=== PATIENT | male | born 1945 | race African-American/Black ===

== ENCOUNTER → 2017-10-31 09:33 | Outpatient (CLI) | payer MEDICARE, MEDICAID, SELFPAY ==
--- NOTE | 2017-10-31 09:40 | XR_ITS ---
XR chest 2V HISTORY: Follow-up pneumonia ITS.REASON: S/P PNEUMONIA,COPD, ORDERING PHYSICIAN: Yuan Gan PATIENT AGE: 71 years COMPARISON: 09/17/2017 FINDINGS: The cardiomediastinal silhouette and pulmonary vascularity are within normal limits. There remains dense consolidation in the left infrahilar region within the left lower lobe. This may be slightly worse compared to the previous exam. This does raise a suspicion of a central obstructing lesion/mass lesion. Recommend CT of the chest with contrast for more thorough evaluation to exclude an underlying pulmonary mass. Calcified granuloma is present in the right lower lobe No acute bony abnormalities. IMPRESSION: Persistent consolidation involving the left lower lobe superior segment. This may be slightly worse. Recommend chest CT with contrast to exclude underlying mass
== END ==
PROVIDERS: PCP Internal Medicine; Visit Provider Internal Medicine
DX: Z09 Encounter for follow-up examination after completed treatment for conditions other than malignant neoplasm (principal); J18.9 Pneumonia, unspecified organism; J44.1 Chronic obstructive pulmonary disease with (acute) exacerbation
CPT/HCPCS: 71046

== ENCOUNTER → 2017-11-01 09:57 | Outpatient (CLI) | payer MEDICARE, MEDICAID, SELFPAY ==
[2017-11-01 10:16] LABS: Blood Urea Nitrogen 11 mg/dL (7-18); Creatinine,Serum 1.08 mg/dL (0.70-1.30); Estimated Glomerular Filt Rate 68 ml/min (>60); GFR (African American) 82 ML/MIN (>60)
--- NOTE | 2017-11-01 10:31 | CT_ITS ---
CT chest wo/w con HISTORY: Left hilar mass/infiltrate, follow-up abnormal radiograph ITS.REASON: PERSISTENT L INFILTRATE ORDERING PHYSICIAN: Yuan Gan PATIENT AGE: 71 years TECHNIQUE: Axial images obtained without and with contrast. Sagittal and coronal reformatted images are also generated and reviewed. CONTRAST: 75ml Isovue 370 I.V. COMPARISON: Radiograph of 10/31/2017 FINDINGS: There is abnormal soft tissue density in the left hilum surrounding and causing some narrowing of the descending branch of the left pulmonary artery and its proximal branches. This area measures approximately 3 x 3 cm. Peripheral to this is a rounded area of density measuring approximately 3 cm with some irregularity of the margins. There are some peripheral air bronchograms adjacent to the lateral dimension density. This is suspicious for a hilar mass/neoplasm with postobstructive pneumonia. Bronchoscopy suggested for further evaluation. There is a small precarinal lymph node at 1.5 x 1.4 cm a small aortopulmonic lymph node is present at 1.2 x 0.9 cm. There are centrilobular emphysematous changes. A calcified granuloma is present in the right lower lobe. No effusions are evident. There is a longitudinal area of consolidation in the left lower lobe posteriorly and may be due to atelectasis. Upper abdominal images are unremarkable. No acute bony anomalies. IMPRESSION: 1. Abnormal soft tissue density in the left infrahilar region causing some narrowing of the proximal aspect of the descending range of the left main pulmonary artery. This area measures 3 x 3 cm and is suspicious for neoplasm. 2. 3 cm somewhat irregular opacity in the superior segment of the left lower lobe peripheral to the suspected hilar mass. While this may be related to dense post obstructive pneumonitis, neoplasm is also considered. Suggest bronchoscopy for further evaluation. The hilar mass is NOT amenable to percutaneous CT-guided biopsy 3. Mild mediastinal adenopathy
== END ==
PROVIDERS: PCP Internal Medicine; Visit Provider Internal Medicine
DX: R04.2 Hemoptysis (principal); R91.8 Other nonspecific abnormal finding of lung field
CPT/HCPCS: 36415; 71270; 82565; 84520; Q9967

== ENCOUNTER → 2017-11-16 14:57 | Outpatient (CLI) | payer MEDICARE, MEDICAID, SELFPAY ==
--- NOTE | 2017-11-16 15:04 | CT_ITS ---
CT abdomen pelvis wo con CLINICAL INDICATION: ITS.REASON: BLOOD IN URINE,ABD PAIN ORDERING PHYSICIAN: Yuan Gan PATIENT AGE: 71 years COMPARISON: Chest CT of [birth year]/01/1977. TECHNIQUE: Axial images obtained with sagittal and coronal reformats. PROCEDURE: Oral Contrast: None IV Contrast: None . FINDINGS: There is a suspicious nodular lesion in the left lung base posteriorly which is contiguous with the abnormality described on the previous chest CT in the superior segment of the left lower lobe. The nodule measures 15 mm and may be due to pulmonary mass or postobstructive change. Pulmonology consult recommended as well as follow-up chest CT with contrast. The liver, gallbladder, spleen, adrenal glands, pancreas, and kidneys have an unremarkable unenhanced CT appearance. No renal calculi or hydronephrosis. No ureteral calculi. The right kidney is slightly low As a normal variant. There is a moderate amount retained colonic feces. Surgical clip in the right lower quadrant. No evidence of appendicitis or diverticulitis. Urinary bladder is decompressed. There are multiple unopacified bowel loops present within the abdomen/pelvis which could obscure or mimic pathology. If symptoms persists, consider repeating exam with IV and oral contrast administration. There is a small right inguinal hernia containing fat. IMPRESSION: 1. No renal or ureteral calculi or hydronephrosis. 2. Constipation. 3. Small right inguinal hernia containing fat. 4 suspicious nodular lesion in the left lung base. Please see recent chest CT for further description and recommendation.
== END ==
PROVIDERS: Family Provider Internal Medicine; PCP Internal Medicine; Visit Provider Internal Medicine
DX: R31.9 Hematuria, unspecified (principal); R10.30 Lower abdominal pain, unspecified
CPT/HCPCS: 74176

== ENCOUNTER → 2018-01-25 11:08 | Outpatient (CLI) | payer MEDICARE, MEDICAID, SELFPAY ==
--- NOTE | 2018-01-25 11:16 | MR_ITS ---
MR head/brain wo/w con HISTORY: Lung cancer, evaluate for metastatic disease ITS.REASON: LUNG CANCER ORDERING PHYSICIAN: Red Wood MD PATIENT AGE: 72 years COMPARISON:: None available TECHNIQUE: Standard multiplanar multiecho sequences are performed without and with gadolinium enhancement . FINDINGS: There is an irregular enhancing lesion in the medial aspect of the right frontal lobe which measures approximately 16 x 15 x 12 mm. There is a moderate amount of edema surrounding this lesion. In addition, there is an irregular 13 x 11 x 10 mm irregular enhancing lesion involving the medial and posterior aspect of the right parietal lobe. There is a mild amount of edema around this lesion. In addition, there is a small enhancing focus in the cortex of the left frontal parietal junction laterally measuring approximately 4 mm. No significant edema around this lesion. No restricted diffusion. No midline shift evident. No other suspicious lesions apparent. No evidence of acute infarction. The cerebellopontine angles, cerebellum, and brainstem are unremarkable. There are few scattered T2 white matter hyperintensities negative. No obvious calvarial lesions. IMPRESSION: The findings are consistent with metastatic disease with a 16 mm lesion in the right frontal lobe, 13 mm lesion in the right parietal lobe, and 4 mm enhancing lesion in the left frontoparietal junction. Moderate amount of edema surrounds the right frontal and right parietal lesions but no midline shift is evident.
[2018-01-25 11:59] LABS: Creatinine,Serum 0.94 mg/dL (0.70-1.30); Estimated Glomerular Filt Rate 79 ml/min (>60); GFR (African American) 96 ML/MIN (>60)
[2018-01-25 12:21] LABS: Blood Urea Nitrogen 18 mg/dL (7-18)
== END ==
PROVIDERS: Family Provider Internal Medicine; PCP Internal Medicine; Visit Provider Internal Medicine Critical Care Medicine
DX: C34.90 Malignant neoplasm of unspecified part of unspecified bronchus or lung (principal)
CPT/HCPCS: 36415; 70553; 82565; 84520; A9576

== ENCOUNTER 2018-02-11 10:25 | Inpatient (IN) ==
[2018-02-11 11:28] LABS: Basophils % 0.1 % (0.1-2.0); Eosinophils # 0.3 K/mm3 (0.0-0.4); Eosinophils % 1.3 % (0.1-12.0); Hematocrit 35.3 % (42.0-52.0); Hemoglobin 10.8 g/dL (14.1-18.0); Lymphocytes % 3.8 K/mm3 (10-50); Mean Corpuscular HGB Conc 30.5 g/dL (31.8-35.4); Mean Corpuscular Hemoglobin 25.2 pg (27.0-31.2); Mean Corpuscular Volume 82.5 fl (80-94); Mean Platelet Volume 7.7 fl (7.4-10.4); Monocytes # 0.7 K/mm3 (0.1-1.0); Monocytes % 2.7 % (1.7-9.3); Neutrophils # 23.4 K/mm3 (1.8-7.8); Neutrophils % 92.1 % (37.0-80.0); Platelet Count 448 K/mm3 (142-424); Red Blood Count 4.27 M/mm3 (4.60-6.20); Red Cell Distribution Width 17.7 % (11.5-17.5); White Blood Count 25.4 K/mm3 (4.8-10.8)
[2018-02-11 11:47] LABS: Anion Gap 9.9 mEq/L (5-15); Potassium 3.9 mmoL/L (3.5-5.1)
[2018-02-11 12:04] LABS: Lymphocytes % 6 % (10-50); Monocytes % 6 % (2-9); Neutrophils % 87 % (42-76); RBC Morphology Normal; Total Cells Counted 100
--- NOTE | 2018-02-11 14:02 | Operative Note ---
Date of procedure: 02/11/18 Pre-op Diagnosis:: Incarcerated recurrent right inguinal hernia Post-op Diagnosis:: Same Procedure performed:: 1. Open repair of incarcerated recurrent right inguinal hernia 2. Diagnostic Laparoscopy. Surgeon:: Cruz Jacobson MD MEAL COOK:: Fabiano Moore Anesthesia: GETA Estimated blood loss (mL): 20 Clinical Note:: Patient is a 72-year-old male. I had seen him as a consultation a couple of months ago for right inguinal hernia. This was minimally symptomatic if any symptomatology at that time. However the patient had initiated workup for possible large lung cancer and therefore plan to proceed with hernia repair at that time was put on hold. He has been diagnosed with non-small cell lung cancer with distant metastases. He has had significant clinical deterioration. He had presented to his primary care physician's office this morning complaining of pain at the hernia site. He was found to have findings of incarcerated inguinal hernia with possible strangulation was sent for urgent surgical evaluation. He was seen in the office and had incarcerated and possibly strangulated inguinal hernia. This was exquisitely tender to the patient unable to be reduced. The plan was for emergent open repair with possible laparotomy if necessary. Operative findings:: Patient had an incarcerated recurrent direct hernia. There is some necrosis of the apparent hernia sac. Completion laparoscopy revealed a knuckle of bowel which was indurated and erythematous which had been contained within the hernia sac but this appeared to be viable and nonnecrotic. Operative note:: Consent was obtained. Patient was taken to the operating room. He was given preoperative intravenous antibiotics. General anesthesia was induced. Abdomen and perineal area were prepped and draped in the standard surgical fashion. Patient actually had wondered to be prior scar well below the inguinal ligament from possible prior repair. Oblique incision was made just above landmarks identifying the inguinal ligament. Dissection carried down through subcutaneous tissues and Angie's fascia. External oblique muscle was exposed. External oblique muscle was opened along its fibers. Anatomy was distorted due to apparent prior primary repair without mesh. With some difficulty the herniated contents were delivered to the wound using mostly blunt dissection. It was difficult to determine the nature of the herniated contents. There was some evidence of necrosis of the apparent hernia sac. Cord structures were altered in their normal anatomic location due to the prior repair and ultimately delineation of the anatomy was achieved. The floor of the inguinal canal was opened somewhat. Attempt was made to open the hernia sac without success initially. It appeared rather thickened and there was initially concern that this may be bladder herniated. This was opened and there is a small amount of fluid within the peritoneum which was suctioned free. Extraneous tissue of the hernia sac which was necrotic was excised with electrocautery. Ultimately this was sent for specimen labeled hernia sac. Peritoneum was then closed with a running locking 2-0 chromic suture. This appeared to be a direct recurrent hernia. The defect was then repaired with a medium sized mesh plug which was inserted into the defect and secured with 2-0 Vicryl sutures. [place]lay mesh was then used to reconstruct floor suturing it to Claudy's ligament, transversalis fascia, and inguinal ligament with interrupted 2-0 PDS sutures. The 2 "leaves" of the mesh encircled the cord structures and were sutured to one another with a couple of interrupted 2-0 PDS sutures to reconstruct the internal ring. Cord structures and apparent ilioinguinal nerve were returned to the normal anatomic position. Local anesthetic was infiltrated. External oblique muscle was closed over the cord structures with a running 2-0 Vicryl suture. Angie's fascia was closed with running 3-0 Vicryl. Skin was closed with 4-0 Monocryl in subcuticular fashion. Due to the fact that the herniated contents could never be identified and inspected plan was made for laparoscopy with laparotomy if necessary. Infraumbilical incision was made. While performing abdominal wall lift Veress needle was inserted and CO2 pneumoperitoneum was achieved 15 mmHg. 5 mm trocar was inserted at the umbilicus. In the right lower quadrant the bowel which had been incarcerated within the hernia was identified. It was somewhat inflamed looking. It appeared to be erythematous and indurated with only a portion of the bowel wall affected. It was viable and not necrotic. Hernia repair appeared intact. Plan was made to not perform resection due to the apparent viability of the knuckle of bowel contained within the hernia. Trochars were then removed as CO2 pneumoperitoneum was evacuated. Laparoscopy incisions were closed with single interrupted 4-0 Monocryl subcuticular sutures. Due to the bowel obstruction from the hernia, patient's profound dehydration, plan will be for admission for inpatient care. Condition: stable Disposition: PACU Specimens:: Hernia sac Complications:: None immediate
--- NOTE | 2018-02-11 14:13 | Progress Note ---
[facility] Anesthesia Checklist - Structural Data Admitted From: Home Planned Operative Procedure/s: hernia repair Consent for Planned Operative Procedure(s) Verified: Yes - Airway Assessment C-Spine Mobility Assessed: Yes TMJ Mobility Assessed: Yes Dentition: Partials - Neurological Assessment Level of Consciousness: Awake, Alert, Appropriate - Anesthesia Plan Anesthesia Risk discussed: Yes Anesthesia Plan: Verified ASA Class: III Anesthesia Type: General [facility] Anesthesia HX I have reviewed the patient's past medical history: Yes Medical History: Reports:: Asthma, Cancer (LEFT LUNG CA) Denies:: Diabetes Mellitus Type 1, Diabetes Mellitus Type 2, Internal Pacemaker, MRSA, Seizures Other Medical History: Denies: Blood Transfusion Reaction Other Surgeries: Yes: Colonoscopy, Hernia Repair. No: Pacemaker Amputation: No Fractures: No *Family Hx:: Cancer, Hypertension, Diabetes
--- NOTE | 2018-02-11 14:15 | Progress Note ---
[facility] Anesthesia Record Part II Discharge Time: 14:35 Destination: floor PACU nurse assessment reviewed?: Yes Patient Condition:: Good Anesthesia Complications:: None
--- NOTE | 2018-02-11 14:15 | Progress Note ---
[facility] Anesthesia Record Part I Intake, IV Amount: 2,800 Estimated blood loss (mL): 0 Urine output (mL): 100 Blood Pressure: 115/55 SaO2: 100 Pulse Rate: 100 Respiratory Rate: 14 Temperature: 97 F Patient is:: Drowsy, Stable Stable to PACU at:: 14:05
[2018-02-12 06:36] LABS: Basophils % 0.1 % (0.1-2.0); Eosinophils % 0.1 % (0.1-12.0); Lymphocytes # 1.3 K/mm3 (0.7-4.5); Lymphocytes % 4.4 K/mm3 (10-50); Mean Corpuscular HGB Conc 29.8 g/dL (31.8-35.4); Mean Corpuscular Hemoglobin 25.2 pg (27.0-31.2); Mean Corpuscular Volume 84.6 fl (80-94); Monocytes # 0.7 K/mm3 (0.1-1.0); Monocytes % 2.5 % (1.7-9.3); Neutrophils # 26.7 K/mm3 (1.8-7.8); Neutrophils % 92.9 % (37.0-80.0); Platelet Count 338 K/mm3 (142-424); Red Cell Distribution Width 17.6 % (11.5-17.5)
[2018-02-12 06:41] LABS: Anion Gap 5.1 mEq/L (5-15); Potassium 4.1 mmoL/L (3.5-5.1)
[2018-02-12 06:43] LABS: Hemoglobin 8.7 g/dL (14.1-18.0); White Blood Count 27.8 K/mm3 (4.8-10.8)
[2018-02-12 06:44] LABS: Hematocrit 29.2 % (42.0-52.0)
--- NOTE | 2018-02-12 07:03 | Progress Note ---
Subjective Patient reports: feels better, pain is less Narrative: Patient feels better. He does have some abdominal soreness when coughing but overall much better. No nausea. Exam Vital signs and Labs for Last 24 Hours: Temp Pulse Resp BP Pulse Ox 97.8 F 78 16 99/64 100 02/12/18 04:00 02/12/18 04:00 02/12/18 04:00 02/12/18 04:00 02/12/18 04:00 Laboratory Results - last 24 hr 02/11/18 11:20: WBC 25.4 H*, RBC 4.27 L, Hgb 10.8 L, Hct 35.3 L, MCV 82.5, MCH 25.2 L, MCHC 30.5 L, RDW 17.7 H, Plt Count 448 H, MPV 7.7, Neut % (Auto) 92.1 H , Lymph % (Auto) 3.8 L, Winston % (Auto) 2.7, Eos % (Auto) 1.3, Baso % (Auto) 0.1, Neut # (Auto) 23.4 H, Lymph # (Auto) 1.0, Winston # (Auto) 0.7, Eos # (Auto) 0.3, Baso # (Auto) 0.0, Total Counted 100, Neutrophils % (Manual) 87 H, Band Neutrophils % 1.0, Lymphocytes % (Manual) 6 L, Monocytes % (Manual) 6, Platelet Estimate Normal, RBC Morphology Normal 02/11/18 11:20: Sodium 136, Potassium 3.9, Chloride 99, Carbon Dioxide 31, Anion Gap 9.9, BUN 24 H, Creatinine 0.95, Estimated Creat Clear 48, Estimated GFR 78, Est GFR ( Amer) 95, Glucose 122 H 02/11/18 12:00: Urine Color [place], Urine Appearance Clear, Urine pH 5.5, Ur Specific [place] >= 1.030, Urine Protein Trace, Urine Glucose (UA) Negative, Urine Ketones Negative, Urine Blood Negative, Urine Nitrate Positive, Urine Bilirubin 2+ A, Urine Urobilinogen 4.0, Ur Leukocyte Esterase Negative, Urine RBC None, Urine WBC 3-5, Ur Squamous Epith Cells 5-10, Urine Bacteria Trace, Hyaline Casts 10-20 02/12/18 06:19: WBC 27.8 H*, RBC 3.40 L, Hgb 8.7 L D, Hct 29.2 L, MCV 84.6, MCH 25.2 L, MCHC 29.8 L, RDW 17.6 H, Plt Count 338, MPV 8.0, Neut % (Auto) 92.9 H, Lymph % (Auto) 4.4 L, Winston % (Auto) 2.5, Eos % (Auto) 0.1, Baso % (Auto) 0.1, Neut # (Auto) 26.7 H, Lymph # (Auto) 1.3, Winston # (Auto) 0.7, Eos # (Auto) 0.0, Baso # (Auto) 0.0 02/12/18 06:19: Sodium 138, Potassium 4.1, Chloride 104, Carbon Dioxide 33 H, Anion Gap 5.1, BUN 23 H, Creatinine 0.85, Estimated Creat Clear 48, Estimated GFR 89, Est GFR ( Amer) 108, Glucose 123 H I & O for Last 24 hours: Intake & Output 02/09/18 02/10/18 02/11/18 02/12/18 11:59 11:59 11:59 11:59 Intake Total 4081 / 4081 Output Total 775 / 775 Balance 3306 / 3306 Weight 109 lb 109 lb - *Routine Abdominal Exam Present: soft Comments: Dressings intact Progress Note: A&P Assessment and Plan for All Diagnoses:: MORENA Bills Full liquid
[2018-02-12 07:36] LABS: Lymphocytes % 5 % (10-50); Neutrophils % 95 % (42-76); Total Cells Counted 100
[2018-02-12 07:37] LABS: Hypochromasia 2+
--- NOTE | 2018-02-12 07:39 | Pharmacy Consult Notes ---
[facility] Pharmacy VTE Monitoring - Patient Demographics Admission date: 02/11/18 Report Date: 02/12/18 Time: 07:39 Allergies/Adverse Reactions: Patient Allergies No Known Allergies Allergy (Verified 02/11/18 11:10) Height: 1.73 m Weight: 49.442 kg - VTE Risk Labs: VTE Related Lab Results Hgb 8.7 g/dL (14.1-18.0) L D 02/12/18 06:19 Hct 29.2 % (42.0-52.0) L 02/12/18 06:19 Plt Count 338 K/mm3 (142-424) 02/12/18 06:19 BUN 23 mg/dL (7-18) H 02/12/18 06:19 Creatinine 0.85 mg/dL (0.70-1.30) 02/12/18 06:19 Estimated Creat Clear 48 mL/min (0-300) 02/12/18 06:19 Was VTE Risk Assessment Performed: Yes VTE Risk Level: Very Low Risk - Prophylaxis VTE Prophylaxis Ordered?: Yes Types of VTE Prophylaxis: TEDS Knee High Location of Applied Device: Bilateral Lower Extremeties - VTE Diagnosis Confirmed Treatment or plan recommended: Continue Current Treatment
--- NOTE | 2018-02-13 06:57 | Progress Note ---
Subjective Patient reports: feels better Narrative: Patient has tolerated full liquid diet without nausea. Voiding without difficulty. Exam Vital signs and Labs for Last 24 Hours: Temp Pulse Resp BP Pulse Ox 98.8 F 109 H 20 122/74 99 02/13/18 04:00 02/13/18 04:00 02/13/18 04:00 02/13/18 04:00 02/13/18 04:00 Laboratory Results - last 24 hr 02/12/18 06:19: Total Counted 100, Neutrophils % (Manual) 95 H, Lymphocytes % ( Manual) 5 L, Platelet Estimate Normal, Hypochromasia 2+ I & O for Last 24 hours: Intake & Output 02/10/18 02/11/18 02/12/18 02/13/18 11:59 11:59 11:59 11:59 Intake Total 4441 / 4441 2647 / 2647 Output Total 1075 / 1075 875 / 875 Balance 3366 / 3366 1772 / 1772 Weight 109 lb 109 lb - *Routine Abdominal Exam Present: soft Progress Note: A&P Assessment and Plan for All Diagnoses:: Discharge home today
--- NOTE | 2018-02-13 07:26 | Discharge Summary ---
General - General Admission date:: 02/11/18 Discharge date: 02/13/18 HPI HPI: Patient is a 72-year-old white male with advanced metastatic lung cancer newly diagnosed. I had actually seen him several months ago prior to that diagnosis for a recurrent right inguinal hernia. This was minimally if any symptomatic at that time. He had presented to his primary care physician's office on with approximately a 2 day history of significant pain however in the right groin area. There is concern for possible strangulated inguinal hernia and he was seen immediately in the office. He had findings of incarcerated and possibly strangulated inguinal hernia and arrangements were made for emergent surgical intervention. Hospital Course Hospital Course: Patient was taken to the operating room and underwent open repair of incarcerated right inguinal hernia. He had a necrotic hernia sac. He did have laparoscopy performed after the hernia repair to inspect the underlying bowel. He had a knuckle of small bowel incarcerated within the hernia sac. This showed some focal erythema and mild induration but no evidence of any necrosis. Plan was made to not perform section. Please see operative dictation for complete details. Patient was admitted postoperatively to assess for ileus or recurrent bowel obstruction and for hydration as he showed findings of significant dehydration upon admission and presentation. Bills catheter remained in place. He was on an n.p.o. status overnight. Of note, the patient did have a leukocytosis and this remained elevated the following morning. He was continued on perioperative intravenous antibiotics. The following morning he was doing well with no nausea or abdominal pain other than soreness from surgery. Bills catheter was discontinued. He was given a full liquid diet. He tolerated full liquid diet without difficulty. Patient was able to void without difficulty. On postoperative day #2 arrangements are made for discharge home. Objective Vital signs: Temp Pulse Resp BP Pulse Ox 98.8 F 109 H 20 122/74 99 02/13/18 04:00 02/13/18 04:00 02/13/18 04:00 02/13/18 04:00 02/13/18 04:00 - *Routine Abdominal Exam Present: soft Results Labs on day of discharge: Labs from last 24 hours 02/12/18 06:19 Total Counted 100 Neutrophils % (Manual) 95 H Lymphocytes % (Manual) 5 L Platelet Estimate Normal Hypochromasia 2+ DS: Diagnosis - Discharge Diagnosis (1) Inguinal hernia of right side with obstruction Status: Acute (2) Dehydration Status: Acute Discharge Plan - Patient Discharge Instructions ACTIVITY: No heavy lifting DIET: advance to your usual diet - Follow up Plan Follow up with: Cruz Jacobson MD [Staff Physician] - 2 weeks Yuan Gan [Primary Care Provider] - 1 week Disposition: Home, Self-Fpc Medications: Home Medications Medication Instructions Recorded Confirmed Type alprazolam 2 mg tablet 2 mg PO QIDP PRN 12/03/17 02/12/18 History aspirin 81 mg tablet,delayed 81 mg PO DAILY 12/03/17 02/12/18 History release rosuvastatin 5 mg tablet 5 mg PO DAILY 12/03/17 02/12/18 History umeclidinium 62.5 mcg-vilanterol 1 puff INHALATION DAILY 12/03/17 02/12/18 History 25 mcg/actuation powdr for inhalation Dexamethasone [Decadron 4mg tablet] 8 mg PO Q6H 02/12/18 02/12/18 History Oxycodone HCl [Oxycodone (IR) 15mg 15 mg PO Q6H 02/12/18 02/12/18 History Tab] Prescriptions/Medication Reconciliation: Continue umeclidinium 62.5 mcg-vilanterol 25 mcg/actuation powdr for inhalation 1 puff INHALATION DAILY alprazolam 2 mg tablet 2 mg PO QIDP PRN PRN Reason: Anxiety aspirin 81 mg tablet,delayed release 81 mg PO DAILY rosuvastatin 5 mg tablet 5 mg PO DAILY Oxycodone HCl [Oxycodone (IR) 15mg Tab] 15 mg PO Q6H Dexamethasone [Decadron 4mg tablet] 8 mg PO Q6H - Vaccines Date Pneumonia Vaccine Given: 02/13/18 Date Influenza Vaccine Given: 02/13/18
== END 2018-02-13 10:25 | disposition home or self-care (01) ==
LOC: OR 10:25 → 2ND 10:25 → OBSVTOIN 14:54
PROVIDERS: ADMIT Surgery; ATTEND Surgery

== ENCOUNTER 2018-02-20 14:52 | Inpatient (IN) ==
--- NOTE | 2018-02-20 15:06 | Emergency Department Note ---
ED Disposition Clinical Impression: Pericarditis Qualifiers: Pericarditis type: unspecified type Chronicity: acute Qualified Code(s): I30.9 - Acute pericarditis, unspecified Pneumonia Qualifiers: Pneumonia type: due to unspecified organism Laterality: left Lung location: lower lobe of lung Qualified Code(s): J18.1 - Lobar pneumonia, unspecified organism Lung cancer Qualifiers: Laterality: left Lung location: hilum of lung Qualified Code(s): C34.02 - Malignant neoplasm of left main bronchus Disposition: Still a Patient Condition on Discharge: Serious - Critical Care Critical Care Time: No Attestation: On , the high probability of a clinically significant, sudden or life threatening deterioration of the following system(s) required my full and direct attention, intervention and personal management. The time I documented below is in addition to time spent performing reported procedures but includes the following listed in this critical care notation. Medical Decision Making - Félix Inquiry Pt receiving controlled substance: No Vital Signs: 02/20/18 14:53 02/20/18 15:00 02/20/18 15:03 Temperature 98.3 F Temperature Source Oral Pulse Rate 120 H 119 H Pulse Rate [Left Radial] 125 H 116 H Respiratory Rate 24 24 Blood Pressure [Right Arm] 122/85 149/64 Blood Pressure Mean [Right Arm] 97 92 Blood Pressure Source [Right Arm] Automatic Cuff Automatic Cuff Blood Pressure Position [Right Arm] Sitting Sitting 02 Sat by Pulse Oximetry 98 98 Oxygen Delivery Method Room Air Room Air 02/20/18 15:21 02/20/18 16:02 02/20/18 16:16 Temperature Temperature Source Pulse Rate Pulse Rate [Left Radial] 111 H 114 H 115 H Respiratory Rate 24 24 18 Blood Pressure [Right Arm] 151/83 152/78 150/80 Blood Pressure Mean [Right Arm] 105 102 103 Blood Pressure Source [Right Arm] Blood Pressure Position [Right Arm] Sitting Sitting 02 Sat by Pulse Oximetry 94 L 96 94 L Oxygen Delivery Method Room Air Room Air - Lab Data Lab Results 02/20/18 15:00: WBC 12.4 H, RBC 3.26 L, Hgb 8.3 L, Hct 27.9 L, MCV 85.5, MCH 25.4 L, MCHC 29.7 L, RDW 17.7 H, Plt Count 295, MPV 8.3, Neut % (Auto) 87.0 H, Lymph % (Auto) 8.4 L, [place] % (Auto) 2.5, Eos % (Auto) 1.9, Baso % (Auto) 0.2, Neut # (Auto) 10.8 H, Lymph # (Auto) 1.0, [place] # (Auto) 0.3, Eos # (Auto) 0.2, Baso # (Auto) 0.0 02/20/18 15:00: Sodium 142, Potassium 3.3 L, Chloride 106, Carbon Dioxide 31, Anion Gap 8.3, BUN 11, Creatinine 0.87, Estimated Creat Clear 51, Estimated GFR 87, Est GFR ( Amer) 105, Glucose 108 H D, Troponin I < 0.02 Result diagrams: 02/20/18 15:00 02/20/18 15:00 Orders (Tests/Meds): ED MEDICATIONS Generic Name Dose Route Start Last Admin Trade Name Freq PRN Reason Stop Dose Admin Aspirin 81 mg 02/21/18 09:00 Aspirin 81mg Enteric Coated Tablet PO 03/23/18 08:59 DAILY [facility] Dexamethasone Sodium Phosphate 8 mg 02/20/18 16:25 Decadron 4mg/Ml 1ml Vial IV 03/22/18 16:24 Q6H [facility] Azithromycin 500 mg/ Sodium 250 mls @ 250 mls/hr 02/20/18 16:25 Chloride IV 03/06/18 16:24 Q24H [facility] Protocol Ceftriaxone Sodium 1 gm/ 50 mls @ 100 mls/hr 02/20/18 16:25 Sodium Chloride IV 03/06/18 16:24 Q24H [facility] Protocol Indomethacin 50 mg 02/20/18 17:30 Indocin 25mg Capsule PO 03/22/18 17:29 TIDWM [facility] Non-Formulary Medication 2 mg 02/20/18 16:25 Alprazolam [Xanax 2mg Tab] PO QIDP PRN Anxiety Non-Formulary Medication 15 mg 02/20/18 16:30 Oxycodone Hcl [Oxycodone (Ir) 15mg Tab] PO 03/22/18 16:29 Q6H [facility]AD[facility] Non-Formulary Medication 5 mg 02/21/18 09:00 Rosuvastatin Calcium [Rosuvastatin Calcium] PO 03/23/18 08:59 DAILY [facility] Non-Formulary Medication 1 puff 02/21/18 09:00 Umeclidinium Brm/Vilanterol Tr [Anoro Ellipta 62.5-25 Mcg Inh] INHALATION 08:59 DAILY [facility] Discontinued Medications Generic Name Dose Route Start Last Admin Trade Name Freq PRN Reason Stop Dose Admin Dexamethasone Sodium Phosphate 8 mg 02/20/18 16:09 Decadron 4mg/Ml 1ml Vial IV 02/20/18 16:10 ONCE ONE Diphenhydramine HCl 50 mg 02/20/18 14:58 Benadryl 50mg/1ml Vial IV 02/20/18 14:59 ONCE ONE Fentanyl Citrate 50 mcg 02/20/18 14:58 Fentanyl 100mcg/2ml Vial IV 02/21/18 14:59 Q3MINP PRN Moderate to Severe Pain Fentanyl Citrate 50 mcg 02/20/18 14:58 Fentanyl 250mcg/5ml Vial IV 02/21/18 14:58 Q3MINP PRN Moderate to Severe Pain Fentanyl Citrate 25 mcg 02/20/18 14:58 Fentanyl 100mcg/2ml Vial IV 02/21/18 14:59 Q3MINP PRN Moderate to Severe Pain Fentanyl Citrate 25 mcg 02/20/18 14:58 Fentanyl 250mcg/5ml Vial IV 02/21/18 14:58 Q3MINP PRN Moderate to Severe Pain Flumazenil 0.2 mg 02/20/18 14:58 Romazicon 0.1mg/Ml 5ml Vial IV 02/20/18 23:00 NEEDED PRN Sedation Heparin Sodium (Porcine) 10,000 unit 02/20/18 14:58 Heparin 1,000 Units/Ml 10ml Vial (Medical Sales Representative) IV 02/20/18 18:58 NEEDED PRN Emergency Box Denitrator Heparin Sodium/Sodium Chloride 3,000 unit 02/20/18 14:58 Heparin 1000 Units/500ml Ns (Medical Sales Representative) IV 02/20/18 14:59 ONCE ONE Sodium Chloride 1,000 mls @ 25 mls/hr 02/20/18 15:00 Sod Chlor 0.9% 1000ml Bag IV 02/21/18 14:58 .Q25H [facility]AD[facility] Indomethacin 50 mg 02/20/18 16:08 Indocin 25mg Capsule PO 02/20/18 16:09 ONCE ONE Lidocaine HCl 20 ml 02/20/18 14:58 Lidocaine 1% 20ml Mdv IJ 02/20/18 14:59 ONCE ONE Midazolam HCl 1 mg 02/20/18 14:58 Midazolam 2mg/2ml Vial IV 02/21/18 14:58 Q3MINP PRN Sedation Midazolam HCl 1 mg 02/20/18 14:58 Midazolam 1mg/Ml 5ml Vial IV 02/21/18 14:58 Q3MINP PRN Sedation Naloxone HCl 0.4 mg 02/20/18 14:58 Narcan 0.4mg/Ml Vial IV 02/21/18 14:58 Q5MINP PRN Decreased respirations Nitroglycerin 800 mcg 02/20/18 14:58 Nitroglycerin 800mcg/8ml Syr (Medical Sales Representative) IV 02/21/18 14:58 NEEDED PRN Emergency Box Denitrator Verapamil HCl 2.5 mg 02/20/18 14:58 Verapamil 2.5mg/Ml 2ml Vial IV 02/20/18 14:59 ONCE ONE ORDERS Category Date Time Status Complete Blood Count Auto Diff Stat Lab 02/20/18 15:00 Results 12-lead EKG Request [ECG Request by /Erik] Stat Y 02/20/18 15:29 Stop Req - Radiology Data #1 Image(s): Chest Image Reviewed: Yes I have reviewed radiologist's interpretation No change left lower lobe infiltrate versus postobstructive collapse Medical Decision Narrative: EKG shows anterior, inferior, and lateral ST elevation. Symptoms are most suggestive of pericarditis more so than acute NH. As noted, the patient also has a left-sided pneumonia, which is the side of his pain, and also his lung cancer on that side. Also at risk of PE given his cancer. However, given his EKG findings a code STEMI was called. NAREN Jones, for Dr. Tucker responded immediately to the emergency room and has sent the EKG to Dr. Tucker. There are going to perform a stat echocardiogram to decide whether to take him to the Medical Sales Representative. 3:14 PM: Echocardiogram shows normal heart function, hyperdynamic. Pericardial effusion, small. Dr. Tucker feels this is pericarditis and recommends that the patient be transferred to [facility] due to his comorbidities. Call placed to [facility] MD[facility]. 3:44 PM: Discussed with Dr. Lamb, emergency physician at [facility]. He also got the plant associate client application support specialist on the line. Neither 1 of them feel that the patient needs transfer to a higher level of care. They both felt that he should be admitted here for treatment. I discussed the case with Dr. Falcon and he said he would be willing to admit if Dr. Tucker's service was willing to consult. I spoke with Nima and he said they would consult. 3:50 PM: I have discussed the case with Dr. Falcon who agrees to admit the patient to the hospital. We discussed the patient's clinical information, including history, exam, laboratory and radiology results and ED course. Per hospital procedure, I will write temporary bridge inpatient orders on the patient. Specific orders requested by the admitting physician: Indomethacin 50 mg 3 times daily. Dexamethasone 8 mg IV every 6 hours. Rocephin and Zithromax for pneumonia. Consult cardiology. General Adult HPI - General Chief complaint: Chest Pain Stated complaint: chest pain Time Seen by Provider: 02/20/18 14:55 Mode of Arrival: Ambulatory Limitations: No Limitations Description of Symptoms (Recalled from ER Triage Doc. by RN): pt to ed ambulatory with c/o lt side chest pain seen earlier today with same dx with pneumonia pt given 324mg asa today. - History of Present Illness HPI narrative: Seen here this morning for chest pain and fever. Had a left sided pneumonia, presumably postobstructive from lung cancer. Had a negative chest pain workup including 2 normal troponins. Says that he went home and felt good while sitting up but when he laid down he had increased pain when he breathes, left chest. His heart began racing. [place] short of breath. No known history of heart problems. Has left lung cancer with brain metastases. Treatment not yet started. Sees Dr. Winters. Primary care provider is Dr. Gan. - Related Data Home Medications Medication Instructions Recorded Confirmed alprazolam 2 mg tablet 2 mg PO QIDP PRN 12/03/17 02/20/18 aspirin 81 mg tablet,delayed 81 mg PO DAILY 12/03/17 02/20/18 release rosuvastatin 5 mg tablet 5 mg PO DAILY 12/03/17 02/20/18 umeclidinium 62.5 mcg-vilanterol 1 puff INHALATION DAILY 12/03/17 02/20/18 25 mcg/actuation powdr for inhalation Dexamethasone [Decadron 4mg tablet] 8 mg PO Q6H 02/12/18 02/20/18 Oxycodone HCl [Oxycodone (IR) 15mg 15 mg PO Q6H 02/12/18 02/20/18 Tab] Cefdinir [Omnicef 300mg Capsule] 300 mg PO BID 02/20/18 02/20/18 Clindamycin HCl [Clindamycin 300mg 300 mg PO TID 02/20/18 02/20/18 Cap] Allergies Allergy/AdvReac Type Severity Reaction Status Date / Time No Known Allergies Allergy Verified 02/11/18 11:10 [facility] History I have reviewed the patient's past medical history: Yes Medical History: Reports:: Asthma, Cancer (lung, brain, liver and bone) Denies:: Diabetes Mellitus Type 1, Diabetes Mellitus Type 2, Internal Pacemaker, MRSA, Seizures Other Medical History: Denies: Blood Transfusion Reaction Other Surgeries: Yes: Colonoscopy, Hernia Repair. No: Pacemaker Amputation: No Fractures: No - Social History Smoking Status: Former smoker Tobacco Type: cigarettes Alcohol Intake: never Alcohol Intake Frequency:: a few times a week Substance Use Type: denies use Occupational Status: retired Housing: house - Psychiatric History Expresses thoughts of harming self/others: None Suicide Plan Description: No Plan Family Hx:: Cancer, Hypertension, Diabetes ROS Obtained: Yes All systems reviewed & no additional complaints - Constitutional Constitutional: Reports fever(s) - Cardiovascular Cardiovascular: Reports chest pain, Reports palpitations - Respiratory Respiratory: Yes cough, Yes dyspnea Physical Exam - General General appearance: alert, in distress - Head Head exam: atraumatic, normocephalic, normal inspection - Eye Eye exam: Present: normal appearance, PERRL, EOMI - ENT ENT exam: Present: normal exam, normal oropharynx, mucous membranes moist, TM's normal bilaterally, normal external ear exam - Neck Neck exam: Present: normal inspection, full ROM, trachea midline. Absent: meningismus, lymphadenopathy - Chest Chest inspection: Present: normal inspection, symmetric chest wall rise. Absent : tenderness - Respiratory Respiratory exam: Present: normal lung sounds bilaterally. Absent: respiratory distress - Cardiovascular Cardiovascular exam: Present: normal rhythm, tachycardia. Absent: JVD - Abdominal Exam Abdominal exam: Present: soft, normal bowel sounds. Absent: distention, tenderness, guarding - Extremities Exam Extremities exam: Present: normal inspection, full ROM, normal capillary refill. Absent: calf tenderness - Back Exam Back exam: Present: normal inspection. Absent: tenderness - Neurological Exam Neurological exam: Present: alert, oriented X3 - Psychiatric Psychiatric exam: Present: normal affect, normal mood - Skin Skin exam: Present: warm, dry, intact, normal color
[2018-02-20 15:39] LABS: Basophils % 0.2 % (0.1-2.0); Eosinophils # 0.2 K/mm3 (0.0-0.4); Eosinophils % 1.9 % (0.1-12.0); Hematocrit 27.9 % (42.0-52.0); Hemoglobin 8.3 g/dL (14.1-18.0); Lymphocytes % 8.4 K/mm3 (10-50); Mean Corpuscular HGB Conc 29.7 g/dL (31.8-35.4); Mean Corpuscular Hemoglobin 25.4 pg (27.0-31.2); Mean Corpuscular Volume 85.5 fl (80-94); Mean Platelet Volume 8.3 fl (7.4-10.4); Monocytes # 0.3 K/mm3 (0.1-1.0); Monocytes % 2.5 % (1.7-9.3); Neutrophils # 10.8 K/mm3 (1.8-7.8); Platelet Count 295 K/mm3 (142-424); Red Blood Count 3.26 M/mm3 (4.60-6.20); Red Cell Distribution Width 17.7 % (11.5-17.5); White Blood Count 12.4 K/mm3 (4.8-10.8)
[2018-02-20 15:51] LABS: Anion Gap 8.3 mEq/L (5-15); Blood Urea Nitrogen 11 mg/dL (7-18); Carbon Dioxide 31 mmol/L (21.0-32.0); Chloride 106 mmol/L (98-107); Glucose 108 mg/dL (74-106); Potassium 3.3 mmoL/L (3.5-5.1); Sodium 142 mmol/L (136-145)
[2018-02-20 16:30] LABS: Lymphocytes % 5 % (10-50); Monocytes % 4 % (2-9); Neutrophils % 90 % (42-76); Total Cells Counted 100
[2018-02-20 16:31] LABS: RBC Morphology Normal
--- NOTE | 2018-02-20 16:54 | Consult Report ---
History of Present Illness Consult date: 02/20/18 Requesting physician: Ananda Bains Consult reason: chest pain Chief complaint: chest pain Additional Medical History:: 1. Lung cancer with brain metastasis A. Patient has been on dexamethasone therapy for about 2 weeks with plans to start chemotherapy in the near future 2. History of tobacco use discontinued recently 3. Hyperlipidemia 4. Recent weight loss 5. Anemia with Hgb 8.3 on 02/20/18 6. Pneumonia, 02/2018 History of present illness: Seen here this morning for chest pain and fever. Had a left sided pneumonia, presumably postobstructive from lung cancer. Had a negative chest pain workup including 2 normal troponins. Says that he went home and felt good while sitting up but when he laid down he had increased pain when he breathes, left chest. His heart began racing. [place] short of breath. No known history of heart problems. Has left lung cancer with brain metastases. Treatment not yet started. Sees Dr. Winters. Primary care provider is Dr. Gan. The above per Dr. Daniels Patient with pleuritic sounding chest pain that worsens with movement. Friction rub heard on exam. EKG shows diffuse ST elevation. Preliminary stat echocardiogram performed shows evidence of small pericardial effusion with ejection fraction around 45-50% range. Due to the patient's comorbidities it was felt that the patient would be best served at a tertiary facility that had capabilities to perform stat pericardiocentesis if needed. ER was contacted with consultation with cardiology services and transfer was not felt necessary. Therefore the patient has been admitted here for medical therapy. [facility] History Medical History: Reports:: Asthma, Cancer (lung, brain, liver and bone) Denies:: Diabetes Mellitus Type 1, Diabetes Mellitus Type 2, Internal Pacemaker, MRSA, Seizures Other Medical History: Denies: Blood Transfusion Reaction Other Surgeries: Yes: Colonoscopy, Hernia Repair. No: Pacemaker Amputation: No Fractures: No - *Social History Smoking Status: Former smoker Tobacco Type: cigarettes Alcohol Intake: never Alcohol Intake Frequency:: a few times a week Substance Use Type: denies use Occupational Status: retired Housing: house - Psychiatric History Expresses thoughts of harming self/others: None Suicide Plan Description: No Plan *Family Hx:: Cancer, Hypertension, Diabetes Meds Home Medications Medication Instructions Recorded Confirmed Type alprazolam 2 mg tablet 2 mg PO QIDP PRN 12/03/17 02/20/18 History aspirin 81 mg tablet,delayed 81 mg PO DAILY 12/03/17 02/20/18 History release rosuvastatin 5 mg tablet 5 mg PO DAILY 12/03/17 02/20/18 History umeclidinium 62.5 mcg-vilanterol 1 puff INHALATION DAILY 12/03/17 02/20/18 History 25 mcg/actuation powdr for inhalation Dexamethasone [Decadron 4mg tablet] 8 mg PO Q6H 02/12/18 02/20/18 History Oxycodone HCl [Oxycodone (IR) 15mg 15 mg PO Q6H 02/12/18 02/20/18 History Tab] Cefdinir [Omnicef 300mg Capsule] 300 mg PO BID 02/20/18 02/20/18 History Clindamycin HCl [Clindamycin 300mg 300 mg PO TID 02/20/18 02/20/18 History Cap] Allergies Allergy/AdvReac Type Severity Reaction Status Date / Time No Known Allergies Allergy Verified 02/11/18 11:10 Review of Systems - *Cardiovascular Reports chest pain, Reports shortness of breath - *Respiratory Reports shortness of breath with activity - *Gastrointestinal Denies abdominal pain - *Musculoskeletal Reports joint pain Exam Vital signs and Labs for Last 24 Hours: Temp Pulse Resp BP Pulse Ox 98.3 F 111 H 24 148/72 94 L 02/20/18 16:35 02/20/18 16:35 02/20/18 16:35 02/20/18 16:35 02/20/18 16:16 Laboratory Results - last 24 hr 02/20/18 15:00: WBC 12.4 H, RBC 3.26 L, Hgb 8.3 L, Hct 27.9 L, MCV 85.5, MCH 25.4 L, MCHC 29.7 L, RDW 17.7 H, Plt Count 295, MPV 8.3, Neut % (Auto) 87.0 H, Lymph % (Auto) 8.4 L, [place] % (Auto) 2.5, Eos % (Auto) 1.9, Baso % (Auto) 0.2, Neut # (Auto) 10.8 H, Lymph # (Auto) 1.0, [place] # (Auto) 0.3, Eos # (Auto) 0.2, Baso # (Auto) 0.0, Total Counted 100, Neutrophils % (Manual) 90 H, Band Neutrophils % 1.0, Lymphocytes % (Manual) 5 L, Monocytes % (Manual) 4, Platelet Estimate Normal, RBC Morphology Normal 02/20/18 15:00: Sodium 142, Potassium 3.3 L, Chloride 106, Carbon Dioxide 31, Anion Gap 8.3, BUN 11, Creatinine 0.87, Estimated Creat Clear 51, Estimated GFR 87, Est GFR ( Amer) 105, Glucose 108 H D, Troponin I < 0.02 I & O for Last 24 hours: Intake & Output 02/18/18 02/19/18 02/20/18 02/21/18 11:59 11:59 11:59 11:59 Weight 116 lb - *Routine Neck Exam Absent: JVD, carotid bruit - *Routine Respiratory Exam Present: rhonchi, diminished air movement - *Routine Cardiovascular Exam Present: RRR, rubs - *Routine Extremities Exam Present: edema - *Routine Neurological Exam Present: alert, oriented X3, moving all extremities Assessment and Plan (1) Pericarditis Current visit: Yes Status: Acute Qualifiers: Pericarditis type: unspecified type Chronicity: acute Qualified Code(s): I30.9 - Acute pericarditis, unspecified Category: Medical Code(s): I31.9 - Disease of pericardium, unspecified (2) Chest pain Current visit: No Status: Acute Qualifiers: Chest pain type: precordial pain Qualified Code(s): R07.2 - Precordial pain Category: Medical Code(s): R07.9 - Chest pain, unspecified (3) Pneumonia Current visit: Yes Status: Acute Qualifiers: Pneumonia type: due to unspecified organism Laterality: left Lung location: lower lobe of lung Qualified Code(s): J18.1 - Lobar pneumonia, unspecified organism Category: Medical Code(s): J18.9 - Pneumonia, unspecified organism (4) Anemia Current visit: No Status: Acute Qualifiers: Anemia type: unspecified type Qualified Code(s): D64.9 - Anemia, unspecified Category: Medical Code(s): D64.9 - Anemia, unspecified (5) Lung cancer Current visit: Yes Status: Acute Qualifiers: Laterality: left Lung location: hilum of lung Qualified Code(s): C34.02 - Malignant neoplasm of left main bronchus Category: Medical Code(s): C34.90 - Malignant neoplasm of unspecified part of unspecified bronchus or lung - Assessment and plan all Dx Assessment and Plan for all problems:: 1. Recommend continued dexamethasone therapy. 2. Indomethacin therapy has been started. 3. Consider repeating limited echocardiogram in a.m. 4. Nothing further to add at this time. 5. Replace potassium and check magnesium level.
--- NOTE | 2018-02-20 18:03 | History & Physical Report ---
*Admission Date: 02/20/18 *Chief complaint: Chest pain/fever *History of present illness: 72-year-old male, regular patient of Dr. Yuan Gan, with known lung cancer, who 4 weeks ago was found to have brain metastases and undefined bony metastases. He has been placed on dexamethasone. This morning he came to the emergency department with a feeling of chest pain, enzymes were negative, x-ray showed post obstructive pneumonia and he had a fever, but was otherwise clinically stable and was discharged on p.o. clindamycin after IV Rocephin. Unfortunately. After discharge from the ER patient felt worse and had chest pain that was resolved with sitting up straight. Came back to the ER, found to have new onset murmur, rubs and gallops and pericarditis was diagnosed by EKG criteria as well as an echocardiogram that showed pericardial effusion-minimal. Patient admitted for IV antibiotics. IV steroids and p.o. indomethacin have been started on my recommendation. The patient himself feels better, is eating supper. He is tired and chronically ill-appearing and falls asleep frequently. [facility] History I have reviewed the patient's past medical history: Yes Medical History: Reports:: Asthma, Cancer (lung, brain, liver and bone) Denies:: Diabetes Mellitus Type 1, Diabetes Mellitus Type 2, Internal Pacemaker, MRSA, Seizures Other Medical History: Denies: Blood Transfusion Reaction Other Surgeries: Yes: Colonoscopy, Hernia Repair. No: Pacemaker Amputation: No Fractures: No - *Social History Educational Level: Completed College Smoking Status: Former smoker Tobacco Type: cigarettes Smoking End Date: september 17 Alcohol Intake: never Alcohol Intake Frequency:: a few times a week Substance Use Type: denies use Occupational Status: retired Housing: house Household Members: spouse - Psychiatric History Expresses thoughts of harming self/others: None Suicide Plan Description: No Plan *Family Hx:: Cancer, Hypertension, Diabetes Review of Systems - Constitutional Reports anorexia, Reports chills, Reports fever(s) - Eyes Denies blind spots, Denies blurry vision, Denies change in vision - ENT Denies abnormal hearing, Denies bleeding gums - *Cardiovascular Reports chest pain, Reports chest pain at rest, Reports shortness of breath, Reports shortness of breath with activity, Denies chest pain with activity, Denies irregular heart rhythm, Denies leg swelling - *Respiratory Reports chest congestion, Reports cough, Denies change in phlegm color - *Gastrointestinal Denies abdominal pain, Denies belching - *Genitourinary Denies difficulty urinating - *Musculoskeletal Reports joint pain, Denies abnormal walking - *Neurologic Denies abnormal walking, Denies abnormal hearing - Psychiatric Reports abnormal sleep pattern - Endocrine Denies cold intolerance, Denies excessive sweating Meds Home Medications Medication Instructions Recorded Confirmed Type alprazolam 2 mg tablet 2 mg PO QIDP PRN 12/03/17 02/20/18 History aspirin 81 mg tablet,delayed 81 mg PO DAILY 12/03/17 02/20/18 History release rosuvastatin 5 mg tablet 5 mg PO DAILY 12/03/17 02/20/18 History umeclidinium 62.5 mcg-vilanterol 1 puff INHALATION DAILY 12/03/17 02/20/18 History 25 mcg/actuation powdr for inhalation Dexamethasone [Decadron 4mg tablet] 8 mg PO Q6H 02/12/18 02/20/18 History Oxycodone HCl [Oxycodone (IR) 15mg 15 mg PO Q6H 02/12/18 02/20/18 History Tab] Cefdinir [Omnicef 300mg Capsule] 300 mg PO BID 02/20/18 02/20/18 History Clindamycin HCl [Clindamycin 300mg 300 mg PO TID 02/20/18 02/20/18 History Cap] Allergies Allergy/AdvReac Type Severity Reaction Status Date / Time No Known Allergies Allergy Verified 02/11/18 11:10 Exam Vital signs and Labs for Last 24 Hours: Temp Pulse Resp BP Pulse Ox 98.7 F 114 H 18 180/92 96 02/20/18 16:47 02/20/18 16:47 02/20/18 16:47 02/20/18 16:47 02/20/18 16:47 Laboratory Results - last 24 hr 02/20/18 15:00: WBC 12.4 H, RBC 3.26 L, Hgb 8.3 L, Hct 27.9 L, MCV 85.5, MCH 25.4 L, MCHC 29.7 L, RDW 17.7 H, Plt Count 295, MPV 8.3, Neut % (Auto) 87.0 H, Lymph % (Auto) 8.4 L, [place] % (Auto) 2.5, Eos % (Auto) 1.9, Baso % (Auto) 0.2, Neut # (Auto) 10.8 H, Lymph # (Auto) 1.0, [place] # (Auto) 0.3, Eos # (Auto) 0.2, Baso # (Auto) 0.0, Total Counted 100, Neutrophils % (Manual) 90 H, Band Neutrophils % 1.0, Lymphocytes % (Manual) 5 L, Monocytes % (Manual) 4, Platelet Estimate Normal, RBC Morphology Normal 02/20/18 15:00: Sodium 142, Potassium 3.3 L, Chloride 106, Carbon Dioxide 31, Anion Gap 8.3, BUN 11, Creatinine 0.87, Estimated Creat Clear 51, Estimated GFR 87, Est GFR ( Amer) 105, Glucose 108 H D, Troponin I < 0.02 02/20/18 16:44: Troponin I < 0.02 02/20/18 16:44: Magnesium 1.3 L I & O for Last 24 hours: Intake & Output 02/18/18 02/19/18 02/20/18 02/21/18 11:59 11:59 11:59 11:59 Weight 114 lb 1 oz Narrative: Patient is cachectic, appears chronically ill. Otherwise is a pleasant and talkative black male who is eating his supper, after eating falls asleep frequently during history taking and has to be awakened, but does appear oriented when awakened. Cranial nerves are symmetric. Oropharynx dry but clear. Heart rate regular with systolic and diastolic friction rubs and murmurs noted. Good distal perfusion. Good distal pulses. Skin is dry. Abdomen soft, lungs have rhonchi and crackles in all lung ni. No expiratory wheezing. No stridor. H&P: Result - Labs Labs: Short CBC 02/20/18 Range/Units 15:00 WBC 12.4 H (4.8-10.8) K/mm3 Hgb 8.3 L (14.1-18.0) g/dL Hct 27.9 L (42.0-52.0) % Plt Count 295 (142-424) K/mm3 BMP 02/20/18 15:00 Sodium 142 Potassium 3.3 L Chloride 106 Carbon Dioxide 31 BUN 11 Creatinine 0.87 Glucose 108 H D Cardiac Enzymes 05/16/18 05/16/18 Range/Units 15:00 16:44 Troponin I < 0.02 < 0.02 (0.00-0.06) ng/ml Assessment and Plan (1) Pericarditis Current visit: Yes Status: Acute Qualifiers: Pericarditis type: unspecified type Chronicity: acute Qualified Code(s): I30.9 - Acute pericarditis, unspecified Category: Medical Code(s): I31.9 - Disease of pericardium, unspecified (2) Chest pain Current visit: No Status: Acute Qualifiers: Chest pain type: precordial pain Qualified Code(s): R07.2 - Precordial pain Category: Medical Code(s): R07.9 - Chest pain, unspecified (3) Pneumonia Current visit: Yes Status: Acute Qualifiers: Pneumonia type: due to unspecified organism Laterality: left Lung location: lower lobe of lung Qualified Code(s): J18.1 - Lobar pneumonia, unspecified organism Category: Medical Code(s): J18.9 - Pneumonia, unspecified organism (4) Anemia Current visit: No Status: Acute Qualifiers: Anemia type: unspecified type Qualified Code(s): D64.9 - Anemia, unspecified Category: Medical Code(s): D64.9 - Anemia, unspecified (5) Lung cancer Current visit: Yes Status: Acute Qualifiers: Laterality: left Lung location: hilum of lung Qualified Code(s): C34.02 - Malignant neoplasm of left main bronchus Category: Medical Code(s): C34.90 - Malignant neoplasm of unspecified part of unspecified bronchus or lung - Assessment and plan all Dx Assessment and Plan for all problems:: Admit to hospital. I reviewed preliminary echo report. Fairly preserved ejection fraction. Mild pericarditis. Cautious dose of beta-ayaz tonight. I discussed his brain metastases with he and his son by phone, son is aware of these metastatic lesions. I discussed ongoing care and brought up the prospect of hospice/palliative care. Son is receptive to this. Patient himself is noncommittal at this point. The overall prognosis for this unfortunate gentleman is poor, we will reassess tomorrow morning.
[2018-02-21 07:01] LABS: Anion Gap 8.2 mEq/L (5-15); Potassium 4.2 mmoL/L (3.5-5.1)
--- NOTE | 2018-02-21 07:28 | Pharmacy Consult Notes ---
[facility] Pharmacy VTE Monitoring - Patient Demographics Admission date: 02/20/18 Report Date: 02/21/18 Time: 07:27 Allergies/Adverse Reactions: Patient Allergies No Known Allergies Allergy (Verified 02/11/18 11:10) Height: 1.73 m Weight: 51.738 kg Patient Problems: Current Active Problems Pneumonia (Acute) Lung cancer (Acute) Pericarditis (Acute) - VTE Risk Labs: VTE Related Lab Results Hgb 8.3 g/dL (14.1-18.0) L 02/20/18 15:00 Hct 27.9 % (42.0-52.0) L 02/20/18 15:00 Plt Count 295 K/mm3 (142-424) 02/20/18 15:00 BUN 14 mg/dL (7-18) D 02/21/18 06:46 Creatinine 0.80 mg/dL (0.70-1.30) 02/21/18 06:46 Estimated Creat Clear 50 mL/min (0-300) 02/21/18 06:46 Was VTE Risk Assessment Performed: Yes VTE Score: 3 VTE Risk Level: Low Risk - Prophylaxis VTE Prophylaxis Ordered?: Yes Types of VTE Prophylaxis: TEDS Knee High Location of Applied Device: Bilateral Lower Extremeties - VTE Diagnosis Confirmed Treatment or plan recommended: Continue Current Treatment
--- NOTE | 2018-02-21 08:53 | Progress Note ---
Subjective Date: 02/21/18 Time: 08:47 Principal diagnosis: Pericarditis Interval history: 72 yo BM in bed in NAD. Looks like he feels better today. States chest pain has significantly improved. Breathing better. Exam Vital signs and Labs for Last 24 Hours: Temp Pulse Resp BP Pulse Ox 97.6 F 94 H 18 102/76 94 L 02/21/18 07:37 02/21/18 07:37 02/21/18 07:37 02/21/18 07:37 02/21/18 07:37 Laboratory Results - last 24 hr 02/20/18 15:00: WBC 12.4 H, RBC 3.26 L, Hgb 8.3 L, Hct 27.9 L, MCV 85.5, MCH 25.4 L, MCHC 29.7 L, RDW 17.7 H, Plt Count 295, MPV 8.3, Neut % (Auto) 87.0 H, Lymph % (Auto) 8.4 L, [place] % (Auto) 2.5, Eos % (Auto) 1.9, Baso % (Auto) 0.2, Neut # (Auto) 10.8 H, Lymph # (Auto) 1.0, [place] # (Auto) 0.3, Eos # (Auto) 0.2, Baso # (Auto) 0.0, Total Counted 100, Neutrophils % (Manual) 90 H, Band Neutrophils % 1.0, Lymphocytes % (Manual) 5 L, Monocytes % (Manual) 4, Platelet Estimate Normal, RBC Morphology Normal 02/20/18 15:00: Sodium 142, Potassium 3.3 L, Chloride 106, Carbon Dioxide 31, Anion Gap 8.3, BUN 11, Creatinine 0.87, Estimated Creat Clear 51, Estimated GFR 87, Est GFR ( Amer) 105, Glucose 108 H D, Troponin I < 0.02 02/20/18 16:44: Troponin I < 0.02 02/20/18 16:44: Magnesium 1.3 L 02/20/18 19:55: Troponin I < 0.02 02/20/18 22:10: Troponin I < 0.02 02/21/18 06:46: Sodium 138, Potassium 4.2 D, Chloride 105, Carbon Dioxide 29, Anion Gap 8.2, BUN 14 D, Creatinine 0.80, Estimated Creat Clear 50, Estimated GFR 96, Est GFR ( Amer) 116, Glucose 152 H D I & O for Last 24 hours: Intake & Output 02/18/18 02/19/18 02/20/18 02/21/18 11:59 11:59 11:59 11:59 Intake Total 1500 / 1500 Balance 1500 / 1500 Weight 114 lb 1 oz - *Routine Respiratory Exam Present: decreased breath sounds - *Routine Cardiovascular Exam Present: RRR. Absent: rubs Progress Note: A&P (1) Pericarditis Status: Acute Current Visit: Yes (2) Chest pain Status: Acute Current Visit: No (3) Pneumonia Status: Acute Current Visit: Yes (4) Anemia Status: Acute Current Visit: No (5) Lung cancer Status: Acute Current Visit: Yes Assessment and Plan for All Diagnoses:: Pericarditis improved on IV steroids and PO indomethacin and metoprolol. Potassium back to normal. Will give Magnesium today. Will not check echo today since clinically improved. Recommend follow up in 1-2 wks or sooner if needed.
--- NOTE | 2018-02-21 09:13 | Progress Note ---
Internal Medicine - PN: Subj *Date: 02/21/18 *Time: 08:00 Interval history: Patient states he woke up feeling "great." He was able to ambulate to the bathroom without dizziness or shortness of breath. He ate 50% of his breakfast this morning which he tolerated well. Alert and oriented x3, some confusion. Rate and rhythm regular. No rub or murmur this morning. Lung sounds diminished throughout. Abdomen soft and nontender Exam Vital signs and Labs for Last 24 Hours: Temp Pulse Resp BP Pulse Ox 97.6 F 94 H 18 102/76 94 L 02/21/18 07:37 02/21/18 07:37 02/21/18 07:37 02/21/18 07:37 02/21/18 07:37 Laboratory Results - last 24 hr 02/20/18 15:00: WBC 12.4 H, RBC 3.26 L, Hgb 8.3 L, Hct 27.9 L, MCV 85.5, MCH 25.4 L, MCHC 29.7 L, RDW 17.7 H, Plt Count 295, MPV 8.3, Neut % (Auto) 87.0 H, Lymph % (Auto) 8.4 L, [place] % (Auto) 2.5, Eos % (Auto) 1.9, Baso % (Auto) 0.2, Neut # (Auto) 10.8 H, Lymph # (Auto) 1.0, [place] # (Auto) 0.3, Eos # (Auto) 0.2, Baso # (Auto) 0.0, Total Counted 100, Neutrophils % (Manual) 90 H, Band Neutrophils % 1.0, Lymphocytes % (Manual) 5 L, Monocytes % (Manual) 4, Platelet Estimate Normal, RBC Morphology Normal 02/20/18 15:00: Sodium 142, Potassium 3.3 L, Chloride 106, Carbon Dioxide 31, Anion Gap 8.3, BUN 11, Creatinine 0.87, Estimated Creat Clear 51, Estimated GFR 87, Est GFR ( Amer) 105, Glucose 108 H D, Troponin I < 0.02 02/20/18 16:44: Troponin I < 0.02 02/20/18 16:44: Magnesium 1.3 L 02/20/18 19:55: Troponin I < 0.02 02/20/18 22:10: Troponin I < 0.02 02/21/18 06:46: Sodium 138, Potassium 4.2 D, Chloride 105, Carbon Dioxide 29, Anion Gap 8.2, BUN 14 D, Creatinine 0.80, Estimated Creat Clear 50, Estimated GFR 96, Est GFR ( Amer) 116, Glucose 152 H D I & O for Last 24 hours: Intake & Output 02/18/18 02/19/18 02/20/18 02/21/18 11:59 11:59 11:59 11:59 Intake Total 1500 / 1500 Balance 1500 / 1500 Weight 114 lb 1 oz Assessment and Plan (1) Pericarditis Current visit: Yes Status: Acute Qualifiers: Pericarditis type: unspecified type Chronicity: acute Qualified Code(s): I30.9 - Acute pericarditis, unspecified Category: Medical Code(s): I31.9 - Disease of pericardium, unspecified (2) Chest pain Current visit: No Status: Acute Qualifiers: Chest pain type: precordial pain Qualified Code(s): R07.2 - Precordial pain Category: Medical Code(s): R07.9 - Chest pain, unspecified (3) Pneumonia Current visit: Yes Status: Acute Qualifiers: Pneumonia type: due to unspecified organism Laterality: left Lung location: lower lobe of lung Qualified Code(s): J18.1 - Lobar pneumonia, unspecified organism Category: Medical Code(s): J18.9 - Pneumonia, unspecified organism (4) Anemia Current visit: No Status: Acute Qualifiers: Anemia type: unspecified type Qualified Code(s): D64.9 - Anemia, unspecified Category: Medical Code(s): D64.9 - Anemia, unspecified (5) Lung cancer Current visit: Yes Status: Acute Qualifiers: Laterality: left Lung location: hilum of lung Qualified Code(s): C34.02 - Malignant neoplasm of left main bronchus Category: Medical Code(s): C34.90 - Malignant neoplasm of unspecified part of unspecified bronchus or lung - Assessment and plan all Dx Assessment and Plan for all problems:: Continue IV steroids and antibiotics. He has had significant improvement of symptoms overnight; however his overall prognosis remains poor. Will likely d/ c home tomorrow. Will revisit Hospice discussion at that time.
--- NOTE | 2018-02-22 07:49 | Progress Note ---
Internal Medicine - PN: Subj *Date: 02/22/18 *Time: 07:48 Interval history: Patient continues to feel better, had a good breakfast, was up out of bed yesterday but was very weak. Exam Vital signs and Labs for Last 24 Hours: Temp Pulse Resp BP Pulse Ox 97.8 F 97 H 20 114/75 95 02/22/18 07:25 02/22/18 07:25 02/22/18 07:25 02/22/18 07:25 02/22/18 07:25 I & O for Last 24 hours: Intake & Output 02/19/18 02/20/18 02/21/18 02/22/18 11:59 11:59 11:59 11:59 Intake Total 1500 / 1500 990 / 990 Output Total 525 / 525 Balance 1500 / 1500 465 / 465 Weight 114 lb 1 oz Microbiology Reports for the Last 24 Hours: Microbiology 02/22/18 04:19 Sputum - Expectorated Sputum Gram Stain - Final Narrative: Patient is pleasant, talkative, alert and oriented. Lungs have rhonchi in both bases but slightly better air entry. Heart rate regular. Again as yesterday, no friction rubs or gallops noted that were noted on admission. No edema noted. Assessment and Plan (1) Pericarditis Current visit: Yes Status: Acute Qualifiers: Pericarditis type: unspecified type Chronicity: acute Qualified Code(s): I30.9 - Acute pericarditis, unspecified Category: Medical Code(s): I31.9 - Disease of pericardium, unspecified (2) Chest pain Current visit: No Status: Acute Qualifiers: Chest pain type: precordial pain Qualified Code(s): R07.2 - Precordial pain Category: Medical Code(s): R07.9 - Chest pain, unspecified (3) Pneumonia Current visit: Yes Status: Acute Qualifiers: Pneumonia type: due to unspecified organism Laterality: left Lung location: lower lobe of lung Qualified Code(s): J18.1 - Lobar pneumonia, unspecified organism Category: Medical Code(s): J18.9 - Pneumonia, unspecified organism (4) Anemia Current visit: No Status: Acute Qualifiers: Anemia type: unspecified type Qualified Code(s): D64.9 - Anemia, unspecified Category: Medical Code(s): D64.9 - Anemia, unspecified (5) Lung cancer Current visit: Yes Status: Acute Qualifiers: Laterality: left Lung location: hilum of lung Qualified Code(s): C34.02 - Malignant neoplasm of left main bronchus Category: Medical Code(s): C34.90 - Malignant neoplasm of unspecified part of unspecified bronchus or lung - Assessment and plan all Dx Assessment and Plan for all problems:: Improved pericarditis. Patient seems to be responding well to pneumonia therapy. Check labs tomorrow. Up and around a chair today and PT evaluation for home safety. Possible discharge tomorrow.
--- NOTE | 2018-02-22 17:05 | Cardiology Report ---
PROCEDURE: 2-D M-mode and color Doppler study INDICATIONS FOR THE TEST: Chest pain+ COPD Heart Murmur Tobacco Smoking Palpitations Fatigue Syncope Edema Hypertension Diabetes Mellitus Rheumatic Fever SOB+BROWN+Obesity Hyperlipidemia Family History HD Additional History Lung cancer, r/o pericardial effusion PATIENT INFORMATION HEIGHT: 68 WEIGHT: 116 GENDER: Male B/P: 121/72 2-D/M-MODE INTERPRETATION: 2-D MEASUREMENTS OBSERVED VALUES IN CMS Right Ventricular Dimension (RVDd) 1.5 Interventricular Septum (Thickness)(IVsd) 1.3 Left Ventricular Internal Dimensions(LVIDd) 3.2 Left Ventricular Posterior Wall (Thickness)(LVPWd) 1.3 Aortic Root 3.1 Aortic Cusp Separation 2.1 Left Atrial Dimensions (LAD) 2.2 2D 1. Left atrium is normal size, left ventricle is normal size, left ventricle wall thickness is upper limit of the normal, there is preserved left ventricular systolic function, visually estimated ejection fraction of 55% with no obvious regional wall motion abnormality. 2. The right atrium and right ventricle are normal size and contractility. 3. The aortic valve is minimally thickened and fibrosed. 4. The mitral and tricuspid valve leaflets are minimally thickened. 5. The pulmonic valve is poorly visualized. 6. Trivial pericardial effusion noted DOPPLER INTERROGATION: Doppler interrogation of the aortic, mitral and tricuspid valve reveals presence of mild mitral and tricuspid regurgitation, tricuspid and jet velocity insufficient for calculation of the right ventricular systolic pressure, Doppler evidence of impaired LV relaxation seen. CONCLUSION: 1. Normal left ventricular size, preserved left ventricular systolic function, visually estimated ejection fraction 55% with no obvious regional wall motion abnormality, Doppler evidence of impaired LV relaxation seen. 2. Thickened and calcified aortic valve without Doppler evidence of aortic stenosis aortic insufficiency. 3. Mild mitral and tricuspid regurgitation 4. Trivial pericardial effusion noted.
[2018-02-23 06:15] LABS: Basophils % 0.1 % (0.1-2.0); Eosinophils # 0.2 K/mm3 (0.0-0.4); Hemoglobin 8.1 g/dL (14.1-18.0); Lymphocytes # 0.8 K/mm3 (0.7-4.5); Lymphocytes % 5.1 K/mm3 (10-50); Mean Corpuscular HGB Conc 30.5 g/dL (31.8-35.4); Mean Corpuscular Hemoglobin 25.1 pg (27.0-31.2); Mean Corpuscular Volume 82.1 fl (80-94); Mean Platelet Volume 8.8 fl (7.4-10.4); Monocytes # 0.3 K/mm3 (0.1-1.0); Monocytes % 1.9 % (1.7-9.3); Neutrophils # 14.6 K/mm3 (1.8-7.8); Neutrophils % 91.9 % (37.0-80.0); Platelet Count 315 K/mm3 (142-424); Red Blood Count 3.24 M/mm3 (4.60-6.20); Red Cell Distribution Width 17.8 % (11.5-17.5); White Blood Count 15.9 K/mm3 (4.8-10.8)
[2018-02-23 06:19] LABS: Albumin Level 1.1 gm/dL (3.4-5.0); Albumin/Globulin Ratio 0.2 (1.1-1.8); Anion Gap 10.4 mEq/L (5-15); Bilirubin,Total 0.2 mg/dL (0.2-1.0); Calcium 8.9 mg/dL (8.5-10.1); Globulin 4.8 gm/dl (1.3-3.2); Hematocrit 26.6 % (42.0-52.0); Potassium 4.4 mmoL/L (3.5-5.1); Total Protein,Serum 5.9 gm/dL (6.4-8.2)
[2018-02-23 06:26] LABS: Lymphocytes % 6 % (10-50); Neutrophils % 75 % (42-76); Total Cells Counted 100
[2018-02-23 06:27] LABS: Anisocytosis 1+; Hypochromasia 3+; Polychromasia 1+; Rouleaux 2+
[2018-02-23 07:41] VITALS: BP 149/61
--- NOTE | 2018-02-23 09:04 | Discharge Summary ---
General - General Admission date:: 02/20/18 Discharge date: 02/23/18 HPI HPI: 72-year-old male, regular patient of Dr. Yuan Gan, with known lung cancer, who 4 weeks ago was found to have brain metastases and undefined bony metastases. He has been placed on dexamethasone. This morning he came to the emergency department with a feeling of chest pain, enzymes were negative, x-ray showed post obstructive pneumonia and he had a fever, but was otherwise clinically stable and was discharged on p.o. clindamycin after IV Rocephin. Unfortunately. After discharge from the ER patient felt worse and had chest pain that was resolved with sitting up straight. Came back to the ER, found to have new onset murmur, rubs and gallops and pericarditis was diagnosed by EKG criteria as well as an echocardiogram that showed pericardial effusion-minimal. Patient admitted for IV antibiotics. IV steroids and p.o. indomethacin have been started on my recommendation. The patient himself feels better, is eating supper. He is tired and chronically ill-appearing and falls asleep frequently. Hospital Course Hospital Course: Patient was admitted, placed on IV steroids and p.o. indomethacin for his pericarditis issues. He was also placed on cautious low-dose beta-ayaz after ejection fraction was determined to be normal. These interventions seems to be temporally associated with nice improvement, and the following morning his friction rub had resolved as had the summation gallop rhythm. He also felt much better, was much more alert, and had no further chest pain. His pneumonia was treated for another day with IV antibiotics. He did have some weakness. This was evaluated by physical therapy, they felt that he would not need in-home therapy but they did schedule him for outpatient therapy for strengthening and gait training that will occur on February 25. Labs remained essentially normal. His white blood cell count did elevate slightly but this was felt to be because of IV dexamethasone. Plan will be to discharge home today. He will be discharged home on new antibiotics, his previous dexamethasone, indomethacin for 48 more hours and metoprolol twice daily. He will follow-up with his regular physician on February 26 and with hematology/oncology on February 27. Objective Vital signs: Temp Pulse Resp BP Pulse Ox 97.8 F 85 18 149/61 94 L 02/23/18 07:38 02/23/18 07:38 02/23/18 07:38 02/23/18 07:38 02/23/18 07:38 Narrative: Is pleasant, oriented, lungs have good air movement, crackles in the right lower lobe as previously noted. Heart rate regular. No murmurs gallops or rubs this morning. No edema or clubbing. Abdomen soft and nontender. Results Labs on day of discharge: Labs from last 24 hours 02/23/18 02/23/18 05:50 05:50 WBC 15.9 H D RBC 3.24 L Hgb 8.1 L Hct 26.6 L MCV 82.1 MCH 25.1 L MCHC 30.5 L RDW 17.8 H Plt Count 315 MPV 8.8 Neut % (Auto) 91.9 H Lymph % (Auto) 5.1 L [place] % (Auto) 1.9 Eos % (Auto) 1.0 Baso % (Auto) 0.1 Neut # (Auto) 14.6 H Lymph # (Auto) 0.8 [place] # (Auto) 0.3 Eos # (Auto) 0.2 Baso # (Auto) 0.0 Total Counted 100 Neutrophils % (Manual) 75 Band Neutrophils % 19.0 H Lymphocytes % (Manual) 6 L Platelet Estimate Normal Polychromasia 1+ Hypochromasia 3+ Anisocytosis 1+ Microcytosis 1+ Rouleaux 2+ Sodium 137 Potassium 4.4 Chloride 104 Carbon Dioxide 27 Anion Gap 10.4 BUN 24 H D Creatinine 0.74 Estimated Creat Clear 50 Estimated GFR 105 Est GFR ( Amer) 127 Glucose 96 Calcium 8.9 Total Bilirubin 0.2 AST 22 ALT 32 Alkaline Phosphatase 98 Total Protein 5.9 L Albumin 1.1 L Globulin 4.8 H Albumin/Globulin Ratio 0.2 L Preliminary micro results at discharge 02/22/18 04:19 Sputum Culture - Preliminary Sputum - Expectorated Sputum Gram Positive Cocci DS: Diagnosis - Discharge Diagnosis (1) Pericarditis Status: Acute (2) Chest pain Status: Acute (3) Pneumonia Status: Acute (4) Anemia Status: Acute (5) Lung cancer Status: Acute Discharge Plan - Patient Discharge Instructions ACTIVITY: Continue current activity, Limited activity DIET: continue same diet - Follow up Plan Follow up with: Yuan Gan [Primary Care Provider] - 02/26/18 Matteo Winters MD [Staff Physician] - 02/27/18 Disposition: Home, Self-Senior Care Medications: Home Medications Medication Instructions Recorded Confirmed Type alprazolam 2 mg tablet 2 mg PO QIDP PRN 12/03/17 02/20/18 History aspirin 81 mg tablet,delayed 81 mg PO DAILY 12/03/17 02/20/18 History release rosuvastatin 5 mg tablet 5 mg PO DAILY 12/03/17 02/20/18 History umeclidinium 62.5 mcg-vilanterol 1 puff INHALATION DAILY 12/03/17 02/20/18 History 25 mcg/actuation powdr for inhalation Dexamethasone [Decadron 4mg tablet] 8 mg PO Q6H 02/12/18 02/20/18 History Oxycodone HCl [Oxycodone (IR) 15mg 15 mg PO Q6H 02/12/18 02/20/18 History Tab] Cefdinir [Omnicef 300mg Capsule] 300 mg PO BID 02/20/18 02/20/18 History Clindamycin HCl [Clindamycin 300mg 300 mg PO TID 02/20/18 02/20/18 History Cap] Prescriptions/Medication Reconciliation: New Azithromycin [Zithromax 250mg tab] 250 mg PO DIRECTED #6 tab Indomethacin [Indocin 25mg capsule] 25 mg OP TID 3 Days #9 cap Metoprolol Tartrate [Lopressor 25mg tablet] 12.5 mg PO BID 30 Days #60 tab Continue umeclidinium 62.5 mcg-vilanterol 25 mcg/actuation powdr for inhalation 1 puff INHALATION DAILY alprazolam 2 mg tablet 2 mg PO QIDP PRN PRN Reason: Anxiety aspirin 81 mg tablet,delayed release 81 mg PO DAILY rosuvastatin 5 mg tablet 5 mg PO DAILY Oxycodone HCl [Oxycodone (IR) 15mg Tab] 15 mg PO Q6H Dexamethasone [Decadron 4mg tablet] 8 mg PO Q6H Cefdinir [Omnicef 300mg Capsule] 300 mg PO BID Clindamycin HCl [Clindamycin 300mg Cap] 300 mg PO TID
== END 2018-02-23 11:11 | disposition home or self-care (01) ==
LOC: ER 14:52 → 2ND 16:12
PROVIDERS: ADMIT Internal Medicine Adolescent Medicine; ATTEND Internal Medicine Adolescent Medicine

== ENCOUNTER 2018-02-25 12:57 | Outpatient (RCR) | payer MEDICARE, MEDICAID, SELFPAY ==
--- NOTE | 2018-02-25 14:09 | HMH.PTOPEV ---
PT Outpatient Evaluation Rehab PT Outpatient Evaluation Start: 02/25/18 13:03 Freq: Status: Active Protocol: Document 02/25/18 13:55 KALEN (Rec: 02/25/18 14:09 KALEN [id number]) Electronically Signed By Farshad Silvestre, PT 02/25/18 13:55 Outpatient Therapy Subjective History Subjective History Pt presents with c/o generalized weakness x ~ 2-3 mos. He reports he was recently diagnosed with lung cancer and has had CAP twice in the past few months. He is also 2 wks S/P emergent right inguinal hernia repair. He reports no other significant PMH at this time. He reports fatigue and SOA make it difficult to ambulate at times . He reports having 1 fall ~ 1 wk ago with no significant injuries. He currently presents with 2+ pitting edema of janet feet which he reports was not present this am. Chief Complaint Weakness Symptom Type Ache Symptoms Relieved By Rest/Positioning Symptoms Aggravated By Physical Activity Walking Prior Functional Limitations None Current Functional Limitations Lifting Housework Walking Level of pain today (0-10) 2 Pain scale - at its worst (0-10) 6 Hip/Knee Eval MMT bilateral Hip Flexion Strength Grade 4 Good Hip Abduction Strength Grade 4 Good Balance Eval Gait/Posture Asssessment General Gait Observation Shuffling Step Assistive Devices None / NA Level of Transfer Assist Independent Ankle/Foot Observation in Gait Swing Decreased Foot Clearance Timed Up and Go Test 1. Is the Timed Up and Go test result > yes or = to 12 seconds? Dynamic Gait Index Test Protocol Gait Level Surface Normal Query Text: Instructions: Walk at your normal speed from here to the next bart (20'). Grading: Bart the lowest category that applies. Change in Gait Speed Normal Query Text: Instructions: Begin walking at your normal pace (for 5'), when I tell you go , walk as fast as you can (for 5'). When I tell you slow , walk as slowly as you can (for 5'). Grading: Bart the lowest category that applies. Gait with Horizontal Head Turns Moderate Impa
== END 2018-02-25 12:58 | disposition home or self-care (01) ==
LOC: PT 12:57
PROVIDERS: Family Provider Internal Medicine; PCP Internal Medicine; Visit Provider Internal Medicine
DX: C34.90 Malignant neoplasm of unspecified part of unspecified bronchus or lung (principal); M62.81 Muscle weakness (generalized)
CPT/HCPCS: 97110; 97163

== ENCOUNTER 2018-02-27 17:05 | Inpatient (IN) ==
[2018-02-27 17:40] LABS: Basophils % 0.2 % (0.1-2.0); Eosinophils # 0.1 K/mm3 (0.0-0.4); Eosinophils % 0.8 % (0.1-12.0); Hematocrit 27.8 % (42.0-52.0); Hemoglobin 8.2 g/dL (14.1-18.0); Lymphocytes # 0.8 K/mm3 (0.7-4.5); Lymphocytes % 11.6 K/mm3 (10-50); Mean Corpuscular HGB Conc 29.3 g/dL (31.8-35.4); Mean Corpuscular Hemoglobin 24.8 pg (27.0-31.2); Mean Corpuscular Volume 84.5 fl (80-94); Mean Platelet Volume 8.8 fl (7.4-10.4); Monocytes # 0.2 K/mm3 (0.1-1.0); Monocytes % 2.3 % (1.7-9.3); Neutrophils # 5.9 K/mm3 (1.8-7.8); Neutrophils % 85.1 % (37.0-80.0); Platelet Count 331 K/mm3 (142-424); Red Blood Count 3.29 M/mm3 (4.60-6.20); Red Cell Distribution Width 17.9 % (11.5-17.5)
[2018-02-27 17:53] LABS: Albumin Level 1.2 gm/dL (3.4-5.0); Albumin/Globulin Ratio 0.2 (1.1-1.8); Anion Gap 7.4 mEq/L (5-15); Bilirubin,Total 0.5 mg/dL (0.2-1.0); Calcium 8.8 mg/dL (8.5-10.1); Potassium 4.4 mmoL/L (3.5-5.1); Total Protein,Serum 6.2 gm/dL (6.4-8.2)
[2018-02-27 18:37] LABS: Lymphocytes % 11 % (10-50); Monocytes % 5 % (2-9); Neutrophils % 84 % (42-76); Total Cells Counted 100
[2018-02-27 18:38] LABS: Hypochromasia 1+
--- NOTE | 2018-02-27 18:41 | Emergency Department Note ---
ED Disposition Clinical Impression: Free intraperitoneal air Abdominal pain Qualifiers: Abdominal location: right lower quadrant Qualified Code(s): R10.31 - Right lower quadrant pain Disposition: Still a Patient Condition on Discharge: Serious Referrals: Yuan Gan [Primary Care Provider] - - Critical Care Critical Care Time: No Attestation: On 02/27/18, the high probability of a clinically significant, sudden or life threatening deterioration of the following system(s) required my full and direct attention, intervention and personal management. The time I documented below is in addition to time spent performing reported procedures but includes the following listed in this critical care notation. Medical Decision Making - Félix Inquiry Pt receiving controlled substance: Yes Félix was queried for this patient: No Reason not queried -: Emergent pt cond-no time Risks and benefits of using a controlled substance: were not discussed with pt by me Vital Signs: 02/27/18 17:13 02/27/18 19:40 02/27/18 20:18 Temperature 97.9 F 97.9 F Temperature Source Axillary Oral Pulse Rate [Left Radial] 94 H 90 107 H Respiratory Rate 20 18 16 Blood Pressure [Right Arm] 118/82 124/76 126/88 Blood Pressure Mean [Right Arm] 94 92 100 Blood Pressure Source [Right Arm] Automatic Cuff Automatic Cuff Blood Pressure Position [Right Arm] Sitting Sitting Supine 02 Sat by Pulse Oximetry 100 98 95 Oxygen Delivery Method Room Air Room Air Room Air - Lab Data Lab Results 02/27/18 17:30: WBC 7.0, RBC 3.29 L, Hgb 8.2 L, Hct 27.8 L, MCV 84.5, MCH 24.8 L , MCHC 29.3 L, RDW 17.9 H, Plt Count 331, MPV 8.8, Neut % (Auto) 85.1 H, Lymph % (Auto) 11.6, [place] % (Auto) 2.3, Eos % (Auto) 0.8, Baso % (Auto) 0.2, Neut # ( Auto) 5.9, Lymph # (Auto) 0.8, [place] # (Auto) 0.2, Eos # (Auto) 0.1, Baso # (Auto ) 0.0, Total Counted 100, Neutrophils % (Manual) 84 H, Lymphocytes % (Manual) 11 , Monocytes % (Manual) 5, Platelet Estimate Normal, Hypochromasia 1+ 02/27/18 17:30: Sodium 141, Potassium 4.4, Chloride 106, Carbon Dioxide 32, Anion Gap 7.4, BUN 14, Creatinine 0.72, Estimated Creat Clear 50, Estimated GFR 108, Est GFR ( Amer) 131, Glucose 110 H, Calcium 8.8, Total Bilirubin 0.5 , AST 14 L, ALT 27, Alkaline Phosphatase 105, Total Protein 6.2 L, Albumin 1.2 L , Globulin 5.0 H, Albumin/Globulin Ratio 0.2 L Result diagrams: 02/27/18 17:30 02/27/18 17:30 Orders (Tests/Meds): ED MEDICATIONS Generic Name Dose Route Start Last Admin Trade Name Freq PRN Reason Stop Dose Admin Ertapenem 1 gm/ Sodium 50 mls @ 100 mls/hr 02/27/18 20:15 Chloride IV 02/27/18 20:16 ONCE ONE Protocol Discontinued Medications Generic Name Dose Route Start Last Admin Trade Name Freq PRN Reason Stop Dose Admin Ketorolac Tromethamine 30 mg 02/27/18 17:30 02/27/18 17:35 Toradol 30mg/Ml Vial IV 02/27/18 17:31 30 mg ONCE ONE Administration Morphine Sulfate 4 mg 02/27/18 18:50 02/27/18 19:03 Morphine 4mg/Ml Syringe IV 02/27/18 18:51 4 mg ONCE ONE Administration ORDERS Category Date Time Status CT abdomen pelvis wo con Stat Cat Scan 02/27/18 17:16 Taken - CT Data CT Scan: Abdomen, Pelvis Time Received: 18:[address] Reviewed: Yes: I discussed the CT results w/the radiologist Findings Narrative: CT scan interpreted by [facility] radiologist. Discussed: Free air scattered across upper abdomen. - ECG Data Tracing #1 EKG interpreted by Chava Daniels MD: Rhythm: sinus Rate: 93 [place]: normal Ectopy: Premature atrial contraction Conduction: normal ST Segment Changes: none T Wave Changes: none Q Waves: none No evidence of acute ischemia or injury - Physician Consults Physician Consulted: Indira Time: 18:59 Reason -: Pt condition Comment/Response: He will come in to see the patient Additional Consult: Herson Time: 19:34 Reason -: Admission Comment/Response: Admit to medicine or surgery, depending on Dr. Jacobson's preference. Medical Decision Narrative: The patient's previous surgery was 16 days ago. Unlikely that he still has free air from that laparoscopy. Free air may represent a new perforated viscus. 8:23 PM: Patient seen by Dr. Jacobson who is taking him to surgery at this time. General Adult HPI - General Chief complaint: Abdominal Pain Stated complaint: stomach problems Time Seen by Provider: 02/27/18 18:40 Mode of Arrival: Ambulatory Limitations: No Limitations Description of Symptoms (Recalled from ER Triage Doc. by RN): PT had hernia sx last week on right lower abdomen and was reaching for something at [facility] approx 30 minutes ago when he felt pain in his right lower abdomen - History of Present Illness HPI narrative: Patient was at [facility] this afternoon and developed sudden onset of pain which he locates in his right mid to lower abdomen. Small amount of vomiting. Pain is not as severe at present, but still there. He had had previous right inguinal hernia surgery for an incarcerated recurrent right inguinal hernia on by Dr. Jacobson. Also had diagnostic laparoscopy at that time. Since then he is also been admitted to the hospital for pneumonia and pericarditis. Was treated with Indocin. He is also on Decadron for brain metastases. He has a lung cancer metastatic to brain. He is seeing Dr. Winters but has not yet had treatment, states treatment is to start in 3 weeks. - Related Data Home Medications Medication Instructions Recorded Confirmed alprazolam 2 mg tablet 2 mg PO QIDP PRN 12/03/17 02/27/18 aspirin 81 mg tablet,delayed 81 mg PO DAILY 12/03/17 02/27/18 release rosuvastatin 5 mg tablet 5 mg PO DAILY 12/03/17 02/27/18 umeclidinium 62.5 mcg-vilanterol 1 puff INHALATION DAILY 12/03/17 02/27/18 25 mcg/actuation powdr for inhalation Dexamethasone [Decadron 4mg tablet] 8 mg PO Q6H 02/12/18 02/27/18 Oxycodone HCl [Oxycodone (IR) 15mg 15 mg PO Q6H 02/12/18 02/27/18 Tab] Cefdinir [Omnicef 300mg Capsule] 300 mg PO BID 02/20/18 02/27/18 Clindamycin HCl [Clindamycin 300mg 300 mg PO TID 02/20/18 02/27/18 Cap] Azithromycin [Zithromax 250mg 250 mg PO DIRECTED 02/27/18 02/27/18 tab] Indomethacin [Indocin 25mg capsule] 25 mg OP TID 02/27/18 02/27/18 Metoprolol Tartrate [Lopressor 12.5 mg PO BID 02/27/18 02/27/18 25mg tablet] Allergies Allergy/AdvReac Type Severity Reaction Status Date / Time No Known Allergies Allergy Verified 02/27/18 15:06 [facility] History I have reviewed the patient's past medical history: Yes Medical History: Reports:: Asthma, Cancer Denies:: Diabetes Mellitus Type 1, Diabetes Mellitus Type 2, Internal Pacemaker, MRSA, Seizures Other Medical History: Denies: Blood Transfusion Reaction Other Surgeries: Yes: Colonoscopy, Hernia Repair. No: Pacemaker Amputation: No Fractures: No - Social History Smoking Status: Former smoker Tobacco Type: cigarettes Smoking End Date: 09/23 Alcohol Intake: never Alcohol Intake Frequency:: a few times a week Substance Use Type: denies use Occupational Status: unemployed Housing: house Household Members: spouse - Psychiatric History Expresses thoughts of harming self/others: None Suicide Plan Description: No Plan Family Hx:: Cancer, Hypertension, Diabetes ROS Obtained: Yes All systems reviewed & no additional complaints - Constitutional Constitutional: Denies fever(s) - Cardiovascular Cardiovascular: Denies chest pain - Respiratory Respiratory: No dyspnea - Gastrointestinal Gastrointestingal: Reports: abdominal pain, vomiting. Denies: diarrhea Physical Exam - General General appearance: alert, in no apparent distress, cachectic - Head Head exam: atraumatic, normocephalic, normal inspection - Eye Eye exam: Present: normal appearance, PERRL, EOMI - ENT ENT exam: Present: normal exam, normal oropharynx, mucous membranes moist, TM's normal bilaterally, normal external ear exam - Neck Neck exam: Present: normal inspection, full ROM, trachea midline. Absent: meningismus, lymphadenopathy - Chest Chest inspection: Present: normal inspection, symmetric chest wall rise. Absent : tenderness - Respiratory Respiratory exam: Present: normal lung sounds bilaterally. Absent: respiratory distress - Cardiovascular Cardiovascular exam: Present: regular rate, normal rhythm. Absent: JVD - Abdominal Exam Abdominal exam: Present: soft, tenderness, guarding, rigidity, normal bowel sounds. Absent: distention, rebound Abdominal tenderness: Present: diffuse, severe - Extremities Exam Extremities exam: Present: normal inspection, full ROM, normal capillary refill. Absent: calf tenderness - Neurological Exam Neurological exam: Present: alert, oriented X3 - Psychiatric Psychiatric exam: Present: normal affect, normal mood - Skin Skin exam: Present: warm, dry, intact, normal color
--- NOTE | 2018-02-27 19:50 | Consult Report ---
*Admission Date: 02/27/18 *Chief complaint: Abdominal pain *History of present illness: Patient is a 72-year-old -[place] male with metastatic lung cancer to the brain. He recently has been on steroids for brain metastases and has been on indomethacin for pericarditis. He has history of right inguinal hernia and presented 16 days ago with incarcerated possibly strangulated right inguinal hernia. He was taken emergently to the operating room at that time and underwent open repair with completion diagnostic laparoscopy to assess the bowel viability. Bowel was erythematous but appeared viable and nonnecrotic. Patient had been seen in postoperative follow-up on 02/25/18 and was doing relatively well. He had seen oncology today as an outpatient and then this afternoon while he was shopping he had sudden onset of pain mostly localized in the right lower quadrant. It was quite severe. Became somewhat more diffuse and he ended to the emergency department. He was seen and evaluated and had non -contrast CT scan which revealed scattered free air. Surgical consultation was obtained. Review of Systems - Constitutional Reports anorexia - Eyes Denies change in vision - ENT Denies abnormal hearing - *Cardiovascular Reports shortness of breath with activity - *Respiratory Reports shortness of breath - *Gastrointestinal Reports abdominal pain - *Genitourinary Reports testicle pain - *Neurologic Reports weakness [facility] History Medical History: Reports:: Asthma, Cancer Denies:: Diabetes Mellitus Type 1, Diabetes Mellitus Type 2, Internal Pacemaker, MRSA, Seizures Other Medical History: Denies: Blood Transfusion Reaction Other Surgeries: Yes: Colonoscopy, Hernia Repair. No: Pacemaker Amputation: No Fractures: No - *Social History Smoking Status: Former smoker Tobacco Type: cigarettes Smoking End Date: 09/23 Alcohol Intake: never Alcohol Intake Frequency:: a few times a week Substance Use Type: denies use Occupational Status: unemployed Housing: house Household Members: spouse - Psychiatric History Expresses thoughts of harming self/others: None Suicide Plan Description: No Plan *Family Hx:: Cancer, Hypertension, Diabetes Meds Home Medications Medication Instructions Recorded Confirmed Type alprazolam 2 mg tablet 2 mg PO QIDP PRN 12/03/17 02/27/18 History aspirin 81 mg tablet,delayed 81 mg PO DAILY 12/03/17 02/27/18 History release rosuvastatin 5 mg tablet 5 mg PO DAILY 12/03/17 02/27/18 History umeclidinium 62.5 mcg-vilanterol 1 puff INHALATION DAILY 12/03/17 02/27/18 History 25 mcg/actuation powdr for inhalation Dexamethasone [Decadron 4mg tablet] 8 mg PO Q6H 02/12/18 02/27/18 History Oxycodone HCl [Oxycodone (IR) 15mg 15 mg PO Q6H 02/12/18 02/27/18 History Tab] Cefdinir [Omnicef 300mg Capsule] 300 mg PO BID 02/20/18 02/27/18 History Clindamycin HCl [Clindamycin 300mg 300 mg PO TID 02/20/18 02/27/18 History Cap] Azithromycin [Zithromax 250mg 250 mg PO DIRECTED 02/27/18 02/27/18 History tab] Indomethacin [Indocin 25mg capsule] 25 mg OP TID 02/27/18 02/27/18 History Metoprolol Tartrate [Lopressor 12.5 mg PO BID 02/27/18 02/27/18 History 25mg tablet] Allergies Allergy/AdvReac Type Severity Reaction Status Date / Time No Known Allergies Allergy Verified 02/27/18 15:06 Exam Vital signs and Labs for Last 24 Hours: Temp Pulse Resp BP Pulse Ox 97.9 F 90 18 124/76 98 02/27/18 17:13 02/27/18 19:40 02/27/18 19:40 02/27/18 19:40 02/27/18 19:40 Laboratory Results - last 24 hr 02/27/18 17:30: WBC 7.0, RBC 3.29 L, Hgb 8.2 L, Hct 27.8 L, MCV 84.5, MCH 24.8 L , MCHC 29.3 L, RDW 17.9 H, Plt Count 331, MPV 8.8, Neut % (Auto) 85.1 H, Lymph % (Auto) 11.6, [place] % (Auto) 2.3, Eos % (Auto) 0.8, Baso % (Auto) 0.2, Neut # ( Auto) 5.9, Lymph # (Auto) 0.8, [place] # (Auto) 0.2, Eos # (Auto) 0.1, Baso # (Auto ) 0.0, Total Counted 100, Neutrophils % (Manual) 84 H, Lymphocytes % (Manual) 11 , Monocytes % (Manual) 5, Platelet Estimate Normal, Hypochromasia 1+ 02/27/18 17:30: Sodium 141, Potassium 4.4, Chloride 106, Carbon Dioxide 32, Anion Gap 7.4, BUN 14, Creatinine 0.72, Estimated Creat Clear 50, Estimated GFR 108, Est GFR ( Amer) 131, Glucose 110 H, Calcium 8.8, Total Bilirubin 0.5 , AST 14 L, ALT 27, Alkaline Phosphatase 105, Total Protein 6.2 L, Albumin 1.2 L , Globulin 5.0 H, Albumin/Globulin Ratio 0.2 L I & O for Last 24 hours: Intake & Output 02/25/18 02/26/18 02/27/18 02/28/18 11:59 11:59 11:59 11:59 Weight 114 lb - Constitutional mild distress - Routine Chest/Breast/Axilla Exam Chest wall: Absent: tenderness - *Routine Respiratory Exam Present: decreased breath sounds - *Routine Cardiovascular Exam Present: RRR - *Routine Abdominal Exam Present: tenderness, distended, rebound, guarding Results - Labs 02/27/18 17:30 02/27/18 17:30 Laboratory Results - last 24 hr 02/27/18 17:30: WBC 7.0, RBC 3.29 L, Hgb 8.2 L, Hct 27.8 L, MCV 84.5, MCH 24.8 L , MCHC 29.3 L, RDW 17.9 H, Plt Count 331, MPV 8.8, Neut % (Auto) 85.1 H, Lymph % (Auto) 11.6, [place] % (Auto) 2.3, Eos % (Auto) 0.8, Baso % (Auto) 0.2, Neut # ( Auto) 5.9, Lymph # (Auto) 0.8, [place] # (Auto) 0.2, Eos # (Auto) 0.1, Baso # (Auto ) 0.0, Total Counted 100, Neutrophils % (Manual) 84 H, Lymphocytes % (Manual) 11 , Monocytes % (Manual) 5, Platelet Estimate Normal, Hypochromasia 1+ 02/27/18 17:30: Sodium 141, Potassium 4.4, Chloride 106, Carbon Dioxide 32, Anion Gap 7.4, BUN 14, Creatinine 0.72, Estimated Creat Clear 50, Estimated GFR 108, Est GFR ( Amer) 131, Glucose 110 H, Calcium 8.8, Total Bilirubin 0.5 , AST 14 L, ALT 27, Alkaline Phosphatase 105, Total Protein 6.2 L, Albumin 1.2 L , Globulin 5.0 H, Albumin/Globulin Ratio 0.2 L Assessment and Plan - Assessment and plan all Dx Assessment and Plan for all problems:: Patient has peritonitis on examination with diffuse guarding and rebound most prominent in the right lower quadrant. He has free air on CT imaging. Possible etiology may be small bowel perforation from previously affected incarcerated small bowel, perforated ulcer, or, less likely, perforated colon. Plan will be for emergent laparotomy with possible bowel resection and potential ostomy if indicated.
--- NOTE | 2018-02-27 21:52 | Operative Note ---
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 He has been on steroids for this and has also recently been on very short course of indomethacin for carditis. 16 days ago he underwent emergent repair of incarcerated with possibly strangulated right inguinal hernia with laparoscopy. She had actually been seen in surgical follow-up 2 days ago on . He was doing relatively well at that time. He was seen by oncology earlier today. This afternoon he was shopping and had sudden onset of right lower abdominal pain. He presented to the emergency department. He had diffuse peritonitis and had findings on CT scan of pneumoperitoneum in the upper abdomen. Surgical consultation was obtained and plan was made for laparotomy. Operative findings:: Patient had a relatively large anterior perforated duodenal ulcer. Operative note:: Consent was obtained and patient was taken to operating room. He is given preoperative intravenous antibiotics. In the operating room he was placed in supine position. General anesthesia was induced. Bills catheter was placed. Abdomen was prepped and draped in the standard surgical fashion. Limited midline incision was made. Surveillance was carried out and there appeared to the fluid and exudate in the right upper quadrant. This appeared to the perforated ulcer. Incision was extended superiorly. He was noted to have about a 4-5 mm defect in the anterior duodenum consistent with perforated duodenal ulcer. Fluid and exudate was evacuated from the abdomen. A pedicle of omentum was mobilized along the vascular pedicle clamping divided and ligating lateral branching vessels mobilizing the pedicle down to the transverse colon. 3 of Surgilon sutures were then placed transversely to obliterate the defect. Pedicle of omentum was brought through the sutures which were then secured down repairing the defect with the omental Kevin patch. Peritoneal cavity was then thoroughly irrigated with copious amounts of warm saline and aspirated until clear. Nasogastric tube was confirmed to be in a good position. Enteric contents were returned to normal anatomic position. Fascia was closed with running 0 PDS 2. Subcutaneous tissues were irrigated. Skin was closed with aileen. Clean dry sterile dressing was applied. Condition: stable Disposition: PACU Specimens:: None Complications:: None immediately apparent
--- NOTE | 2018-02-27 21:57 | Progress Note ---
[facility] Anesthesia Record Part I Intake, IV Amount: 600 Estimated blood loss (mL): 10 Urine output (mL): 100 Blood Products used (#): none Blood Pressure: 124/78 SaO2: 95 Pulse Rate: 92 Respiratory Rate: 18 Temperature: 98.0 F Patient is:: Drowsy, Stable Stable to PACU at:: 21:52
--- NOTE | 2018-02-27 21:58 | Progress Note ---
[facility] Anesthesia Record Part II Discharge Time: 22:22 Destination: Medical Surgical Department PACU nurse assessment reviewed?: Yes Patient Condition:: Good Anesthesia Complications:: None
[2018-02-27 22:58] LABS: Microscopic, Urine URINE MICROSCOPIC (MICROSCOPIC)
[2018-02-27 22:59] LABS: Appearance,Urine CLEAR (Clear); Blood, Urine Negative (Negative); Color,Urine YELLOW (Yellow); Glucose,Urine (UA) Negative (Negative); Ketones,Urine Negative (Negative); Leukocyte Esterase,Urine Negative (Negative); Protein,Urine 1+ (Negative); Specific Gravity, Urine 1.015 (1.005-1.030)
[2018-02-27 23:01] LABS: Bilirubin,Urine Negative (Negative)
[2018-02-27 23:08] LABS: Amorphous Sediment,Urine 1+ /lpf; Bacteria,Urine 1+ /lpf; Hyaline Casts,Urine Occasional #/lpf (0); Mucus,Urine 1+ /lpf
[2018-02-28 06:05] LABS: Anion Gap 10.3 mEq/L (5-15); Potassium 4.3 mmoL/L (3.5-5.1)
[2018-02-28 06:22] LABS: Basophils % 0.1 % (0.1-2.0); Hematocrit 24.7 % (42.0-52.0); Lymphocytes # 1.2 K/mm3 (0.7-4.5); Lymphocytes % 9.5 K/mm3 (10-50); Mean Corpuscular HGB Conc 30.1 g/dL (31.8-35.4); Mean Corpuscular Hemoglobin 24.8 pg (27.0-31.2); Mean Corpuscular Volume 82.3 fl (80-94); Mean Platelet Volume 8.6 fl (7.4-10.4); Monocytes # 0.3 K/mm3 (0.1-1.0); Monocytes % 2.3 % (1.7-9.3); Neutrophils # 10.8 K/mm3 (1.8-7.8); Platelet Count 311 K/mm3 (142-424); Red Cell Distribution Width 17.7 % (11.5-17.5); White Blood Count 12.3 K/mm3 (4.8-10.8)
[2018-02-28 06:28] LABS: Hemoglobin 7.4 g/dL (14.1-18.0)
--- NOTE | 2018-02-28 07:10 | Progress Note ---
Subjective Patient reports: feels better Narrative: Patient still does have some right lower quadrant pain but overall feels much better than last night. Exam Vital signs and Labs for Last 24 Hours: Temp Pulse Resp BP Pulse Ox 98.3 F 111 H 14 90/60 96 02/28/18 06:00 02/28/18 06:00 02/28/18 06:00 02/28/18 06:00 02/28/18 06:06 Laboratory Results - last 24 hr 02/27/18 17:30: WBC 7.0, RBC 3.29 L, Hgb 8.2 L, Hct 27.8 L, MCV 84.5, MCH 24.8 L , MCHC 29.3 L, RDW 17.9 H, Plt Count 331, MPV 8.8, Neut % (Auto) 85.1 H, Lymph % (Auto) 11.6, [place] % (Auto) 2.3, Eos % (Auto) 0.8, Baso % (Auto) 0.2, Neut # ( Auto) 5.9, Lymph # (Auto) 0.8, [place] # (Auto) 0.2, Eos # (Auto) 0.1, Baso # (Auto ) 0.0, Total Counted 100, Neutrophils % (Manual) 84 H, Lymphocytes % (Manual) 11 , Monocytes % (Manual) 5, Platelet Estimate Normal, Hypochromasia 1+ 02/27/18 17:30: Sodium 141, Potassium 4.4, Chloride 106, Carbon Dioxide 32, Anion Gap 7.4, BUN 14, Creatinine 0.72, Estimated Creat Clear 50, Estimated GFR 108, Est GFR ( Amer) 131, Glucose 110 H, Calcium 8.8, Total Bilirubin 0.5 , AST 14 L, ALT 27, Alkaline Phosphatase 105, Total Protein 6.2 L, Albumin 1.2 L , Globulin 5.0 H, Albumin/Globulin Ratio 0.2 L 02/27/18 20:45: Urine Color Yellow, Urine Appearance Clear, Urine pH 7.0, Ur Specific [place] 1.015, Urine Protein 1+, Urine Glucose (UA) Negative, Urine Ketones Negative, Urine Blood Negative, Urine Nitrate Negative, Urine Bilirubin Negative, Urine Urobilinogen 1.0, Ur Leukocyte Esterase Negative, Urine RBC 3-5 , Urine WBC 3-5, Amorphous Sediment 1+, Urine Bacteria 1+, Hyaline Casts Occasional, Fine Granular Casts 3-5, Urine Mucus 1+ 02/28/18 05:10: WBC 12.3 H D, RBC 3.00 L, Hgb 7.4 L*, Hct 24.7 L, MCV 82.3, MCH 24.8 L, MCHC 30.1 L, RDW 17.7 H, Plt Count 311, MPV 8.6, Neut % (Auto) 88.0 H, Lymph % (Auto) 9.5 L, [place] % (Auto) 2.3, Eos % (Auto) 0.0 L, Baso % (Auto) 0.1, Neut # (Auto) 10.8 H, Lymph # (Auto) 1.2, [place] # (Auto) 0.3, Eos # (Auto) 0.0, Baso # (Auto) 0.0 02/28/18 05:10: Sodium 141, Potassium 4.3, Chloride 107, Carbon Dioxide 28, Anion Gap 10.3, BUN 16, Creatinine 0.78, Estimated Creat Clear 51, Estimated GFR 98, Est GFR ( Amer) 119, Glucose 97 I & O for Last 24 hours: Intake & Output 02/25/18 02/26/18 02/27/18 02/28/18 11:59 11:59 11:59 11:59 Intake Total 600 / 600 Output Total 100 / 100 Balance 500 / 500 Weight 116 lb 5 oz - *Routine Abdominal Exam Present: soft, tenderness Comments: Dressing dry Progress Note: A&P Assessment and Plan for All Diagnoses:: Continue NG tube for now. Possible contrast study tomorrow prior to removal of nasogastric tube. Continue proton pump inhibitors. May need transfusion. Out of bed to chair. Continue Invanz and Diflucan for 5 days.
--- NOTE | 2018-02-28 07:18 | Pharmacy Consult Notes ---
[facility] Pharmacy VTE Monitoring - Patient Demographics Admission date: 02/27/18 Report Date: 02/28/18 Time: 07:18 Allergies/Adverse Reactions: Patient Allergies No Known Allergies Allergy (Verified 02/27/18 15:06) Height: 1.73 m Weight: 52.758 kg Patient Problems: Current Active Problems Free intraperitoneal air (Acute) Abdominal pain (Acute) - VTE Risk Labs: VTE Related Lab Results Hgb 7.4 g/dL (14.1-18.0) L* 02/28/18 05:10 Hct 24.7 % (42.0-52.0) L 02/28/18 05:10 Plt Count 311 K/mm3 (142-424) 02/28/18 05:10 BUN 16 mg/dL (7-18) 02/28/18 05:10 Creatinine 0.78 mg/dL (0.70-1.30) 02/28/18 05:10 Estimated Creat Clear 51 mL/min (0-300) 02/28/18 05:10 Was VTE Risk Assessment Performed: Yes VTE Score: 5 VTE Risk Level: Low Risk - Prophylaxis VTE Prophylaxis Ordered?: Yes Types of VTE Prophylaxis: TEDS Knee High, IPCS Knee High Location of Applied Device: Bilateral Lower Extremeties - VTE Diagnosis Confirmed Treatment or plan recommended: Continue Current Treatment
--- NOTE | 2018-02-28 11:21 | Consult Report ---
*Admission Date: 02/27/18 *Chief complaint: Acute abdomen/peritonitis *History of present illness: Patient is a 72-year-old -[place] male with metastatic lung cancer to the brain. He recently has been on steroids for brain metastases and has been on indomethacin for pericarditis. He has history of right inguinal hernia and presented 16 days ago with incarcerated possibly strangulated right inguinal hernia. He was taken emergently to the operating room at that time and underwent open repair with completion diagnostic laparoscopy to assess the bowel viability. Bowel was erythematous but appeared viable and nonnecrotic. Patient had been seen in postoperative follow-up on 02/25/18 and was doing relatively well. He had seen oncology today as an outpatient and then this afternoon while he was shopping he had sudden onset of pain mostly localized in the right lower quadrant. It was quite severe. Became somewhat more diffuse and he ended to the emergency department. He was seen and evaluated and had non -contrast CT scan which revealed scattered free air. Surgical consultation was obtained. Per surgical consultation/H&P. Patient last night was taken to operating room where pneumoperitoneum was investigated with laparotomy. Found to have a large perforated anterior ulcer. Of note, patient has been treated for pericarditis with steroids-which she had been on before for his brain metastases, as well as the addition of indomethacin which resolved peritonitis symptoms but obviously risk factors for ulcer with perforation. He was transferred to the stepdown unit and I examined him this morning. Has some expected surgical incision pain but overall notes that his abdominal pain and swelling is much improved. He has no complaints of chest pain or shortness of air and is alert and pleasant. [facility] History I have reviewed the patient's past medical history: Yes Medical History: Reports:: Asthma, Cancer Denies:: Diabetes Mellitus Type 1, Diabetes Mellitus Type 2, Internal Pacemaker, MRSA, Seizures Other Medical History: Denies: Blood Transfusion Reaction Other Surgeries: Yes: Colonoscopy, Hernia Repair. No: Pacemaker Amputation: No Fractures: No - *Social History Educational Level: Attended College Smoking Status: Former smoker Tobacco Type: cigarettes Smoking End Date: 09/23 Alcohol Intake: former Alcohol Intake Frequency:: 0-2 drinks per day Substance Use Type: denies use Occupational Status: unemployed Housing: house Household Members: spouse - Psychiatric History Expresses thoughts of harming self/others: None Suicide Plan Description: No Plan *Family Hx:: Cancer, Hypertension, Diabetes Review of Systems - Review of Systems Review of systems:: other, pertinent systems reviewed and negative unless documented below - *Neurologic Reports weakness, Denies abnormal hearing Meds Home Medications Medication Instructions Recorded Confirmed Type alprazolam 2 mg tablet 2 mg PO QIDP PRN 12/03/17 02/27/18 History aspirin 81 mg tablet,delayed 81 mg PO DAILY 12/03/17 02/27/18 History release rosuvastatin 5 mg tablet 5 mg PO DAILY 12/03/17 02/27/18 History Dexamethasone [Decadron 4mg tablet] 8 mg PO Q6H 02/12/18 02/27/18 History Oxycodone HCl [Oxycodone (IR) 15mg 15 mg PO Q6H 02/12/18 02/27/18 History Tab] Indomethacin [Indocin 25mg capsule] 25 mg OP TID 02/27/18 02/27/18 History Metoprolol Tartrate [Lopressor 12.5 mg PO BID 02/27/18 02/27/18 History 25mg tablet] Umeclidinium Brm/Vilanterol Tr 1 each IH DAILY 02/28/18 02/28/18 History [Anoro Ellipta 62.5-25 Mcg INH] Allergies Allergy/AdvReac Type Severity Reaction Status Date / Time No Known Allergies Allergy Verified 02/27/18 15:06 Exam Vital signs and Labs for Last 24 Hours: Temp Pulse Resp BP Pulse Ox 98.3 F 115 H 16 95/60 95 02/28/18 11:00 02/28/18 11:00 02/28/18 10:45 02/28/18 11:00 02/28/18 11:00 Laboratory Results - last 24 hr 02/27/18 17:30: WBC 7.0, RBC 3.29 L, Hgb 8.2 L, Hct 27.8 L, MCV 84.5, MCH 24.8 L , MCHC 29.3 L, RDW 17.9 H, Plt Count 331, MPV 8.8, Neut % (Auto) 85.1 H, Lymph % (Auto) 11.6, [place] % (Auto) 2.3, Eos % (Auto) 0.8, Baso % (Auto) 0.2, Neut # ( Auto) 5.9, Lymph # (Auto) 0.8, [place] # (Auto) 0.2, Eos # (Auto) 0.1, Baso # (Auto ) 0.0, Total Counted 100, Neutrophils % (Manual) 84 H, Lymphocytes % (Manual) 11 , Monocytes % (Manual) 5, Platelet Estimate Normal, Hypochromasia 1+ 02/27/18 17:30: Sodium 141, Potassium 4.4, Chloride 106, Carbon Dioxide 32, Anion Gap 7.4, BUN 14, Creatinine 0.72, Estimated Creat Clear 50, Estimated GFR 108, Est GFR ( Amer) 131, Glucose 110 H, Calcium 8.8, Total Bilirubin 0.5 , AST 14 L, ALT 27, Alkaline Phosphatase 105, Total Protein 6.2 L, Albumin 1.2 L , Globulin 5.0 H, Albumin/Globulin Ratio 0.2 L 02/27/18 20:45: Urine Color Yellow, Urine Appearance Clear, Urine pH 7.0, Ur Specific [place] 1.015, Urine Protein 1+, Urine Glucose (UA) Negative, Urine Ketones Negative, Urine Blood Negative, Urine Nitrate Negative, Urine Bilirubin Negative, Urine Urobilinogen 1.0, Ur Leukocyte Esterase Negative, Urine RBC 3-5 , Urine WBC 3-5, Amorphous Sediment 1+, Urine Bacteria 1+, Hyaline Casts Occasional, Fine Granular Casts 3-5, Urine Mucus 1+ 02/28/18 05:10: WBC 12.3 H D, RBC 3.00 L, Hgb 7.4 L*, Hct 24.7 L, MCV 82.3, MCH 24.8 L, MCHC 30.1 L, RDW 17.7 H, Plt Count 311, MPV 8.6, Neut % (Auto) 88.0 H, Lymph % (Auto) 9.5 L, [place] % (Auto) 2.3, Eos % (Auto) 0.0 L, Baso % (Auto) 0.1, Neut # (Auto) 10.8 H, Lymph # (Auto) 1.2, [place] # (Auto) 0.3, Eos # (Auto) 0.0, Baso # (Auto) 0.0 02/28/18 05:10: Sodium 141, Potassium 4.3, Chloride 107, Carbon Dioxide 28, Anion Gap 10.3, BUN 16, Creatinine 0.78, Estimated Creat Clear 51, Estimated GFR 98, Est GFR ( Amer) 119, Glucose 97 02/28/18 07:55: Blood Type A Positive, Antibody Screen Negative, Crossmatch (AHG ) See Detail 02/28/18 08:40: Blood Type Confirm A Positive I & O for Last 24 hours: Intake & Output 02/25/18 02/26/18 02/27/18 02/28/18 11:59 11:59 11:59 11:59 Intake Total 600 / 600 Output Total 100 / 100 Balance 500 / 500 Weight 116 lb 5 oz Narrative: Laparotomy scar noted. Otherwise, some expected tenderness around the surgical site. No distal edema. Lungs have rhonchi but otherwise fairly clear, heart rate regular in the low 100 range. Sinus rhythm on monitor. No evidence of ST elevation as previously noted before. Colitis treatment. No gallops or rubs today. Internal Medicine - CN: Reslt - Labs CBC & Chem 7: 02/28/18 05:10 02/28/18 05:10 Labs: Short CBC 02/27/18 02/28/18 Range/Units 17:30 05:10 WBC 7.0 12.3 H D (4.8-10.8) K/mm3 Hgb 8.2 L 7.4 L* (14.1-18.0) g/dL Hct 27.8 L 24.7 L (42.0-52.0) % Plt Count 331 311 (142-424) K/mm3 BMP 02/27/18 02/28/18 17:30 05:10 Sodium 141 141 Potassium 4.4 4.3 Chloride 106 107 Carbon Dioxide 32 28 BUN 14 16 Creatinine 0.72 0.78 Glucose 110 H 97 Calcium 8.8 Liver Function 02/27/18 Range/Units 17:30 Total Bilirubin 0.5 (0.2-1.0) mg/dL AST 14 L (15-37) U/L ALT 27 (12-78) U/L Alkaline Phosphatase 105 (46-116) U/L Albumin 1.2 L (3.4-5.0) gm/dL Urine 02/27/18 Range/Units 20:45 Urine Color Yellow (Yellow) Urine Appearance Clear (Clear) Urine pH 7.0 (5.0-8.5) Ur Specific [place] 1.015 (1.005-1.030) Urine Protein 1+ (Negative) Urine Glucose (UA) Negative (Negative) Assessment and Plan (1) Gastric ulcer Current visit: Yes Status: Acute Category: Medical Code(s): K25.9 - Gastric ulcer, unspecified as acute or chronic, without hemorrhage or perforation Usually hold steroids and nonsteroidal agents. Status post surgical therapy. Aggressive acid reduction plan. (2) Free intraperitoneal air Current visit: Yes Status: Acute Category: Medical Code(s): K66.8 - Other specified disorders of peritoneum (3) Lung cancer Current visit: No Status: Acute Qualifiers: Laterality: left Lung location: hilum of lung Qualified Code(s): C34.02 - Malignant neoplasm of left main bronchus Category: Medical Code(s): C34.90 - Malignant neoplasm of unspecified part of unspecified bronchus or lung (4) Pericarditis Current visit: No Status: Acute Qualifiers: Pericarditis type: unspecified type Chronicity: acute Qualified Code(s): I30.9 - Acute pericarditis, unspecified Category: Medical Code(s): I31.9 - Disease of pericardium, unspecified No evidence of recurrence at this point. Should symptoms develop would need repeat echocardiogram.
[2018-02-28 11:52] LABS: Lymphocytes % 8 % (10-50); Monocytes % 2 % (2-9); Neutrophils % 79 % (42-76); Total Cells Counted 100
[2018-02-28 11:57] LABS: Hypochromasia 1+
[2018-02-28 11:58] LABS: Anisocytosis 1+
[2018-02-28 16:27] LABS: Hematocrit 35.9 % (42.0-52.0)
[2018-02-28 16:44] LABS: Hemoglobin 10.9 g/dL (14.1-18.0)
--- NOTE | 2018-03-01 07:12 | Progress Note ---
Internal Medicine - PN: Subj *Date: 03/01/18 *Time: 07:10 Interval history: Patient did well overnight, has some fullness in his right lower abdomen. No complaints of chest pain or shortness of air. Has been tolerating room air oxygen well. Heart rates in mid 90s and a sinus rhythm. Exam Vital signs and Labs for Last 24 Hours: Temp Pulse Resp BP Pulse Ox 97.6 F 89 16 122/84 96 03/01/18 04:00 03/01/18 06:00 03/01/18 06:00 03/01/18 06:00 03/01/18 06:00 Laboratory Results - last 24 hr 02/28/18 05:10: Total Counted 100, Neutrophils % (Manual) 79 H, Band Neutrophils % 7.0, Lymphocytes % (Manual) 8 L, Monocytes % (Manual) 2, Metamyelocytes % 4.0 H, Platelet Estimate Normal, RBC Morphology Not Reportable , Hypochromasia 1+, Anisocytosis 1+, Microcytosis 1+ 02/28/18 07:55: Blood Type A Positive, Antibody Screen Negative, Crossmatch (AHG ) See Detail 02/28/18 08:40: Blood Type Confirm A Positive 02/28/18 16:12: Hgb 10.9 L D, Hct 35.9 L I & O for Last 24 hours: Intake & Output 02/26/18 02/27/18 02/28/18 03/01/18 11:59 11:59 11:59 11:59 Intake Total 700 / 700 1768 / 1768 Output Total 100 / 100 2475 / 2475 Balance 600 / 600 -707 / -707 Weight 116 lb 5 oz 122 lb 1 oz Narrative: Patient is pleasant and alert, no distress. NG tube in the right nostril. Heart rates in the mid 90s. Sinus rhythm. No ST elevation changes on telemetry monitoring. Lungs are rhonchorous but well-expanded bilaterally. Abdominal scar looks good, minimal fullness in the right side, some tenderness, expected postoperatively. No distal edema. Assessment and Plan (1) Gastric ulcer Current visit: Yes Status: Acute Category: Medical Code(s): K25.9 - Gastric ulcer, unspecified as acute or chronic, without hemorrhage or perforation (2) Free intraperitoneal air Current visit: Yes Status: Acute Category: Medical Code(s): K66.8 - Other specified disorders of peritoneum (3) Lung cancer Current visit: No Status: Acute Qualifiers: Laterality: left Lung location: hilum of lung Qualified Code(s): C34.02 - Malignant neoplasm of left main bronchus Category: Medical Code(s): C34.90 - Malignant neoplasm of unspecified part of unspecified bronchus or lung (4) Pericarditis Current visit: No Status: Acute Qualifiers: Pericarditis type: unspecified type Chronicity: acute Qualified Code(s): I30.9 - Acute pericarditis, unspecified Category: Medical Code(s): I31.9 - Disease of pericardium, unspecified - Assessment and plan all Dx Assessment and Plan for all problems:: Dexamethasone intravenously started given his history of brain metastases. Otherwise no evidence of return of pericarditis. Holding NSAIDs. Continuing IV steroids. Watch cardiac status.
[2018-03-01 07:37] LABS: Basophils % 0.1 % (0.1-2.0); Eosinophils % 0.1 % (0.1-12.0); Hematocrit 35.7 % (42.0-52.0); Hemoglobin 10.5 g/dL (14.1-18.0); Lymphocytes # 0.9 K/mm3 (0.7-4.5); Lymphocytes % 5.4 K/mm3 (10-50); Mean Corpuscular HGB Conc 29.4 g/dL (31.8-35.4); Mean Corpuscular Hemoglobin 25.1 pg (27.0-31.2); Mean Corpuscular Volume 85.2 fl (80-94); Mean Platelet Volume 8.6 fl (7.4-10.4); Monocytes # 0.4 K/mm3 (0.1-1.0); Monocytes % 2.3 % (1.7-9.3); Neutrophils % 92.2 % (37.0-80.0); Platelet Count 272 K/mm3 (142-424); Red Blood Count 4.19 M/mm3 (4.60-6.20); Red Cell Distribution Width 17.4 % (11.5-17.5); White Blood Count 16.3 K/mm3 (4.8-10.8)
[2018-03-01 07:51] LABS: Anion Gap 9.6 mEq/L (5-15); Potassium 4.6 mmoL/L (3.5-5.1)
[2018-03-01 10:28] LABS: Anisocytosis 1+; Hypochromasia 1+; Lymphocytes % 6 % (10-50); Neutrophils % 94 % (42-76); Total Cells Counted 100
--- NOTE | 2018-03-01 13:09 | Progress Note ---
Subjective Patient reports: no new complaints Narrative: Patient states that he feels the need to void. He still has Bills catheter in place. Received blood transfusion with good response yesterday. Underwent upper GI fluoroscopy this morning which reveals no evidence of any gastric outlet obstruction and no leak. Exam Vital signs and Labs for Last 24 Hours: Temp Pulse Resp BP Pulse Ox 97.0 F L 86 18 113/79 96 03/01/18 11:45 03/01/18 12:00 03/01/18 11:45 03/01/18 11:45 03/01/18 11:45 Laboratory Results - last 24 hr 02/28/18 07:55: Blood Type A Positive, Antibody Screen Negative, Crossmatch (AHG ) See Detail 02/28/18 16:12: Hgb 10.9 L D, Hct 35.9 L 03/01/18 07:25: WBC 16.3 H D, RBC 4.19 L D, Hgb 10.5 L, Hct 35.7 L, MCV 85.2, MCH 25.1 L, MCHC 29.4 L, RDW 17.4, Plt Count 272, MPV 8.6, Neut % (Auto) 92.2 H , Lymph % (Auto) 5.4 L, [place] % (Auto) 2.3, Eos % (Auto) 0.1, Baso % (Auto) 0.1, Neut # (Auto) 15.0 H, Lymph # (Auto) 0.9, [facility] # (Auto) 0.4, Eos # (Auto) 0.0, Baso # (Auto) 0.0, Total Counted 100, Neutrophils % (Manual) 94 H, Lymphocytes % (Manual) 6 L, Platelet Estimate Normal, Hypochromasia 1+, Anisocytosis 1+ 03/01/18 07:25: Sodium 141, Potassium 4.6, Chloride 107, Carbon Dioxide 29, Anion Gap 9.6, BUN 21 H D, Creatinine 0.94 D, Estimated Creat Clear 54, Estimated GFR 79, Est GFR ( Amer) 96, Glucose 120 H I & O for Last 24 hours: Intake & Output 02/27/18 02/28/18 03/01/18 03/02/18 11:59 11:59 11:59 11:59 Intake Total 700 / 700 1768 / 1768 Output Total 100 / 100 2550 / 2550 Balance 600 / 600 -782 / -782 Weight 116 lb 5 oz 122 lb 1 oz - *Routine Abdominal Exam Present: soft Comments: Abdomen reveals hypoactive bowel sounds. Dressing is dry. Progress Note: A&P (1) Gastric ulcer Status: Acute Assessment and plan: Remove nasogastric tube. DC Bills. Transfer to floor. Current Visit: Yes (2) Free intraperitoneal air Status: Acute Current Visit: Yes (3) Lung cancer Status: Acute Current Visit: No (4) Pericarditis Status: Acute Current Visit: No
--- NOTE | 2018-03-02 02:51 | Progress Note ---
Acute Rapid Response Note - Subjective Date Responded: 03/02/18 Time Responded: 02:30 Provider Note: pt with elevated hr and was found staring off with hx of lung cancer with brain mets - no tonic clonic movement noted - on arrival spont resp and was able to resp to verbal stimuli but appeared post-ictal- vss and ekg was nonacute - abg ok - - Objective Findings: Vital Signs - Last 4 Hours Temperature 97.8 F 03/01/18 20:00 Temperature Source Oral 03/01/18 20:00 Pulse Rate 88 03/01/18 20:00 Respiratory Rate 16 03/01/18 20:00 TAR Vitals Timing 1 Hour Post Infusion 02/28/18 15:54 Blood Pressure 117/76 03/01/18 20:00 Blood Pressure Mean 89 03/01/18 20:00 Blood Pressure Source Automatic Cuff 03/01/18 20:00 Blood Pressure Position Supine 03/01/18 20:00 02 Sat by Pulse Oximetry 96 03/01/18 20:00 Oxygen Delivery Method 03/02/18 01:44 Oxygen Flow Rate (LPM) 2 03/01/18 15:57 - ECG Data Tracing #1 Attestation EKG: I reviewed this ECG and interpreted as documented below: Arrhythmias present: sinus tach Ischemic changes: non-specific ST-T wave changes Rapid Response Exam slow responsive to tactile stimuli but able to answer questions - no focal changes bs ok and pulses full - ekg and abg ok - - General General appearance: alert, lethargic, cachectic - Head Head exam: atraumatic - Eye Eye exam: Present: PERRL, EOMI - ENT ENT exam: Present: mucous membranes dry - Neck Neck exam: Present: normal inspection - Chest Chest inspection: Present: normal inspection - Respiratory Respiratory exam: Absent: respiratory distress - Cardiovascular Cardiovascular exam: Present: regular rate, systolic murmur - Abdominal Exam Abdominal exam: Present: other (nonacute with dressing ) - Extremities Exam Extremities exam: Absent: joint swelling - Neurological Exam Neurological exam: Present: CN II-XII intact, other (arousable and slowly improving ) - Skin Skin exam: Absent: rash RR Procedures/Assess/Plan - Additional Bedside Procedures Arterial blood draw: Yes (abg lt groin) (1) Seizures Comment: will give loading dose of dilantin 750 mg- i discussed with rajat jacobsen Current Visit: Yes Status: Acute Assessment and Plan: will give loading dose of dilantin 750 mg
[2018-03-02 03:05] LABS: Eosinophils # 0.1 K/mm3 (0.0-0.4); Eosinophils % 0.5 % (0.1-12.0); Hematocrit 36.7 % (42.0-52.0); Hemoglobin 10.7 g/dL (14.1-18.0); Lymphocytes # 0.9 K/mm3 (0.7-4.5); Mean Corpuscular HGB Conc 29.1 g/dL (31.8-35.4); Mean Corpuscular Hemoglobin 24.9 pg (27.0-31.2); Mean Corpuscular Volume 85.7 fl (80-94); Mean Platelet Volume 8.2 fl (7.4-10.4); Monocytes # 0.4 K/mm3 (0.1-1.0); Monocytes % 2.3 % (1.7-9.3); Platelet Count 270 K/mm3 (142-424); Red Blood Count 4.29 M/mm3 (4.60-6.20); White Blood Count 17.4 K/mm3 (4.8-10.8)
[2018-03-02 03:16] LABS: Lymphocytes % 5 % (10-50); Neutrophils % 89 % (42-76); Total Cells Counted 100
[2018-03-02 03:17] LABS: Anisocytosis 1+; Hypochromasia 3+
[2018-03-02 03:26] LABS: Alanine Aminotransferase 19 U/L (12-78); Albumin/Globulin Ratio 0.2 (1.1-1.8); Alkaline Phosphatase 95 U/L (46-116); Anion Gap 10.3 mEq/L (5-15); Aspartate Amino Transferase 10 U/L (15-37); Bilirubin,Total 0.3 mg/dL (0.2-1.0); Blood Urea Nitrogen 27 mg/dL (7-18); Calcium 8.9 mg/dL (8.5-10.1); Carbon Dioxide 29 mmol/L (21.0-32.0); Chloride 106 mmol/L (98-107); Creatine Kinase 16 U/L (39-308); Globulin 4.8 gm/dl (1.3-3.2); Potassium 4.3 mmoL/L (3.5-5.1); Sodium 141 mmol/L (136-145); Total Protein,Serum 5.8 gm/dL (6.4-8.2)
[2018-03-02 03:28] LABS: Glucose 168 mg/dL (74-106)
--- NOTE | 2018-03-02 07:29 | Progress Note ---
Internal Medicine - PN: Subj *Date: 03/02/18 *Time: 07:28 Interval history: Patient is alert this morning but had a seizure last night, was loaded with Dilantin. Nurses tell me that yesterday they took away some Xanax that patient had from a home supply-possibly from street prescription, but patient states this morning the Dr. Gan prescribed him Xanax 3 times daily. He has not been getting that here. No complaints of mental status changes this morning. His abdominal pain is improving. Exam Vital signs and Labs for Last 24 Hours: Temp Pulse Resp BP Pulse Ox 97.6 F 82 18 114/78 99 03/02/18 04:00 03/02/18 04:00 03/02/18 04:00 03/02/18 04:00 03/02/18 04:00 Laboratory Results - last 24 hr 03/01/18 07:25: WBC 16.3 H D, RBC 4.19 L D, Hgb 10.5 L, Hct 35.7 L, MCV 85.2, MCH 25.1 L, MCHC 29.4 L, RDW 17.4, Plt Count 272, MPV 8.6, Neut % (Auto) 92.2 H , Lymph % (Auto) 5.4 L, [place] % (Auto) 2.3, Eos % (Auto) 0.1, Baso % (Auto) 0.1, Neut # (Auto) 15.0 H, Lymph # (Auto) 0.9, [place] # (Auto) 0.4, Eos # (Auto) 0.0, Baso # (Auto) 0.0, Total Counted 100, Neutrophils % (Manual) 94 H, Lymphocytes % (Manual) 6 L, Platelet Estimate Normal, Hypochromasia 1+, Anisocytosis 1+ 03/01/18 07:25: Sodium 141, Potassium 4.6, Chloride 107, Carbon Dioxide 29, Anion Gap 9.6, BUN 21 H D, Creatinine 0.94 D, Estimated Creat Clear 54, Estimated GFR 79, Est GFR ( Amer) 96, Glucose 120 H 03/02/18 02:37: POC Glucose 150 H 03/02/18 02:55: WBC 17.4 H, RBC 4.29 L, Hgb 10.7 L, Hct 36.7 L, MCV 85.7, MCH 24.9 L, MCHC 29.1 L, RDW 17.0, Plt Count 270, MPV 8.2, Neut % (Auto) 92.0 H, Lymph % (Auto) 5.0 L, [place] % (Auto) 2.3, Eos % (Auto) 0.5, Baso % (Auto) 0.0 L, Neut # (Auto) 16.0 H, Lymph # (Auto) 0.9, [place] # (Auto) 0.4, Eos # (Auto) 0.1, Baso # (Auto) 0.0, Total Counted 100, Neutrophils % (Manual) 89 H, Band Neutrophils % 6.0, Lymphocytes % (Manual) 5 L, Platelet Estimate Normal, Hypochromasia 3+, Anisocytosis 1+, Microcytosis 1+ 03/02/18 02:55: Sodium 141, Potassium 4.3, Chloride 106, Carbon Dioxide 29, Anion Gap 10.3, BUN 27 H D, Creatinine 1.03, Estimated Creat Clear 52, Estimated GFR 71, Est GFR ( Amer) 86, Glucose 168 H D, Calcium 8.9, Total Bilirubin 0.3, AST 10 L D, ALT 19 D, Alkaline Phosphatase 95, Total Creatine Kinase 16 L, CK-MB (CK-2) < 0.5, CK-MB (CK-2) Rel Index 3.1, Troponin I < 0.02, Total Protein 5.8 L, Albumin 1.0 L, Globulin 4.8 H, Albumin/Globulin Ratio 0.2 L I & O for Last 24 hours: Intake & Output 02/27/18 02/28/18 03/01/18 03/02/18 11:59 11:59 11:59 11:59 Intake Total 700 / 700 1868 / 1868 5086 / 5086 Output Total 100 / 100 2550 / 2550 550 / 550 Balance 600 / 600 -682 / -682 4536 / 4536 Weight 116 lb 5 oz 122 lb 1 oz 122 lb 1.013 oz Narrative: No focal neurologic deficits. Lungs have rhonchi, heart rate regular. Abdomen is tender as expected postoperatively. Assessment and Plan (1) Seizures Problem details: will give loading dose of dilantin 750 mg- i discussed with rajat jacobsen Current visit: Yes Status: Acute Category: Medical Code(s): R56.9 - Unspecified convulsions Continue Dilantin, restart Xanax. (2) Gastric ulcer Current visit: Yes Status: Acute Category: Medical Code(s): K25.9 - Gastric ulcer, unspecified as acute or chronic, without hemorrhage or perforation Improving along with surgical pin, no evidence of recurrent pericarditis.
--- NOTE | 2018-03-02 08:25 | Progress Note ---
Subjective Narrative: Patient reportedly had seizure-like activity earlier this morning and rapid response was called. Patient now alert and without any new complaints. He has had some liquid bowel movements and is passing gas. He has been able to void without difficulty since Bills catheter has been removed. Exam Vital signs and Labs for Last 24 Hours: Temp Pulse Resp BP Pulse Ox 97.6 F 82 18 114/78 99 03/02/18 04:00 03/02/18 04:00 03/02/18 04:00 03/02/18 04:00 03/02/18 04:00 Laboratory Results - last 24 hr 03/01/18 07:25: Total Counted 100, Neutrophils % (Manual) 94 H, Lymphocytes % ( Manual) 6 L, Platelet Estimate Normal, Hypochromasia 1+, Anisocytosis 1+ 03/02/18 02:37: POC Glucose 150 H 03/02/18 02:55: WBC 17.4 H, RBC 4.29 L, Hgb 10.7 L, Hct 36.7 L, MCV 85.7, MCH 24.9 L, MCHC 29.1 L, RDW 17.0, Plt Count 270, MPV 8.2, Neut % (Auto) 92.0 H, Lymph % (Auto) 5.0 L, [place] % (Auto) 2.3, Eos % (Auto) 0.5, Baso % (Auto) 0.0 L, Neut # (Auto) 16.0 H, Lymph # (Auto) 0.9, [place] # (Auto) 0.4, Eos # (Auto) 0.1, Baso # (Auto) 0.0, Total Counted 100, Neutrophils % (Manual) 89 H, Band Neutrophils % 6.0, Lymphocytes % (Manual) 5 L, Platelet Estimate Normal, Hypochromasia 3+, Anisocytosis 1+, Microcytosis 1+ 03/02/18 02:55: Sodium 141, Potassium 4.3, Chloride 106, Carbon Dioxide 29, Anion Gap 10.3, BUN 27 H D, Creatinine 1.03, Estimated Creat Clear 52, Estimated GFR 71, Est GFR ( Amer) 86, Glucose 168 H D, Calcium 8.9, Total Bilirubin 0.3, AST 10 L D, ALT 19 D, Alkaline Phosphatase 95, Total Creatine Kinase 16 L, CK-MB (CK-2) < 0.5, CK-MB (CK-2) Rel Index 3.1, Troponin I < 0.02, Total Protein 5.8 L, Albumin 1.0 L, Globulin 4.8 H, Albumin/Globulin Ratio 0.2 L I & O for Last 24 hours: Intake & Output 02/27/18 02/28/18 03/01/18 03/02/18 11:59 11:59 11:59 11:59 Intake Total 700 / 700 1868 / 1868 5086 / 5086 Output Total 100 / 100 2550 / 2550 550 / 550 Balance 600 / 600 -682 / -682 4536 / 4536 Weight 116 lb 5 oz 122 lb 1 oz 122 lb 1.013 oz - Constitutional no acute distress - *Routine Abdominal Exam Present: soft Comments: Abdomen is much softer. Incision is clean. Progress Note: A&P (1) Seizures Problem details: will give loading dose of dilantin 750 mg- i discussed with rajat jacobsen Status: Acute Current Visit: Yes (2) Gastric ulcer Status: Acute Assessment and plan: Clear liquid diet. Current Visit: Yes
--- NOTE | 2018-03-03 06:45 | Progress Note ---
Internal Medicine - PN: Subj *Date: 03/03/18 *Time: 06:43 Interval history: Patient is without complaints this morning. Nursing noted the patient was very sedate throughout the day yesterday including into the night. He remains that way this morning. He will answer questions. He denies pain. Appetite is poor. Exam Vital signs and Labs for Last 24 Hours: Temp Pulse Resp BP Pulse Ox 97.5 F L 72 16 114/80 97 03/03/18 04:00 03/03/18 04:00 03/03/18 04:00 03/03/18 04:00 03/03/18 04:00 I & O for Last 24 hours: Intake & Output 02/28/18 03/01/18 03/02/18 03/03/18 11:59 11:59 11:59 11:59 Intake Total 700 / 700 1868 / 1868 5186 / 5186 3430 / 3430 Output Total 100 / 100 2550 / 2550 550 / 550 250 / 250 Balance 600 / 600 -682 / -682 4636 / 4636 3180 / 3180 Weight 116 lb 5 oz 122 lb 1 oz 122 lb 1.013 oz 126 lb 8 oz Narrative: He is in no distress. Lungs are clear to auscultation. Heart has regular rate and rhythm. Abdomen is soft with epigastric tenderness. Neurologic status: Patient is sluggish. Speech is clear. Cranial nerves are intact. Motor and sensation function is intact. Assessment and Plan (1) Gastric ulcer Current visit: Yes Status: Acute Category: Medical Code(s): K25.9 - Gastric ulcer, unspecified as acute or chronic, without hemorrhage or perforation (2) Seizures Problem details: will give loading dose of dilantin 750 mg- i discussed with rajat jacobsen Current visit: Yes Status: Acute Category: Medical Code(s): R56.9 - Unspecified convulsions - Assessment and plan all Dx Assessment and Plan for all problems:: No change to medical care. His suppressed level alertness could be due to the antiepileptic medications he was started on yesterday. Patient was also restarted on a much lower dose of Xanax and he takes at home so I doubt the Xanax is the cause. Continue to monitor for seizure activity
--- NOTE | 2018-03-03 09:46 | Progress Note ---
Subjective Patient reports: feels better Narrative: Patient reportedly has been somewhat more somnolent. Sleeping this morning but awakens and answers questions appropriately. States he feels better. Drinking a lot of clear liquids without difficulty. Exam Vital signs and Labs for Last 24 Hours: Temp Pulse Resp BP Pulse Ox 96.8 F L 71 16 137/87 94 L 03/03/18 08:00 03/03/18 08:00 03/03/18 08:00 03/03/18 08:00 03/03/18 08:09 I & O for Last 24 hours: Intake & Output 02/28/18 03/01/18 03/02/18 03/03/18 11:59 11:59 11:59 11:59 Intake Total 700 / 700 1868 / 1868 5186 / 5186 3550 / 3550 Output Total 100 / 100 2550 / 2550 550 / 550 250 / 250 Balance 600 / 600 -682 / -682 4636 / 4636 3300 / 3300 Weight 116 lb 5 oz 122 lb 1 oz 122 lb 1.013 oz 126 lb 8 oz - *Routine Abdominal Exam Present: soft Comments: Incision clean intact. Progress Note: A&P (1) Gastric ulcer Status: Acute Assessment and plan: Advance to full liquids. Decrease IV fluids. Cont PPI. Continue Invanz and Diflucan for now. Current Visit: Yes (2) Seizures Problem details: will give loading dose of dilantin 750 mg- i discussed with rajat jacobsen Status: Acute Current Visit: Yes
--- NOTE | 2018-03-04 07:17 | Progress Note ---
Internal Medicine - PN: Subj *Date: 03/04/18 *Time: 07:15 Interval history: Patient resting comfortably in bed this morning. He does awaken when his name is called. He answers questions appropriately and denies pain. Exam Vital signs and Labs for Last 24 Hours: Temp Pulse Resp BP Pulse Ox 97.5 F L 75 16 123/80 99 03/04/18 04:00 03/04/18 04:00 03/04/18 04:00 03/04/18 04:00 03/04/18 04:00 I & O for Last 24 hours: Intake & Output 03/01/18 03/02/18 03/03/18 03/04/18 11:59 11:59 11:59 11:59 Intake Total 1868 / 1868 5186 / 5186 3650 / 3650 5780 / 5780 Output Total 2550 / 2550 550 / 550 250 / 250 1100 / 1100 Balance -682 / -682 4636 / 4636 3400 / 3400 4680 / 4680 Weight 122 lb 1 oz 122 lb 1.013 oz 126 lb 8 oz 132 lb 2 oz Narrative: At present his level of alertness is similar to yesterday. He does answer questions although he is little slow to respond. Lungs are clear. Heart has a regular rate and rhythm. Abdomen is soft with mild epigastric tenderness Assessment and Plan (1) Gastric ulcer Current visit: Yes Status: Acute Category: Medical Code(s): K25.9 - Gastric ulcer, unspecified as acute or chronic, without hemorrhage or perforation (2) Seizures Problem details: will give loading dose of dilantin 750 mg- i discussed with rajat jacobsen Current visit: Yes Status: Acute Category: Medical Code(s): R56.9 - Unspecified convulsions - Assessment and plan all Dx Assessment and Plan for all problems:: No change in current medical care.
[2018-03-04 08:16] LABS: Albumin/Globulin Ratio 0.2 (1.1-1.8); Anion Gap 9.2 mEq/L (5-15); Bilirubin,Total 0.3 mg/dL (0.2-1.0); Calcium 8.9 mg/dL (8.5-10.1); Globulin 4.3 gm/dl (1.3-3.2); Potassium 4.2 mmoL/L (3.5-5.1); Total Protein,Serum 5.3 gm/dL (6.4-8.2)
--- NOTE | 2018-03-04 09:24 | Progress Note ---
Subjective Narrative: Patient has been somewhat weak and somnolent. Minimal intake of full liquids. Exam Vital signs and Labs for Last 24 Hours: Temp Pulse Resp BP Pulse Ox 97.6 F 76 16 136/90 99 03/04/18 08:00 03/04/18 08:00 03/04/18 08:00 03/04/18 08:00 03/04/18 08:00 Laboratory Results - last 24 hr 03/04/18 07:49: Sodium 142, Potassium 4.2, Chloride 104, Carbon Dioxide 33 H, Anion Gap 9.2, BUN 14 D, Creatinine 0.59 L D, Estimated Creat Clear 58, Estimated GFR 136, Est GFR ( Amer) 164 D, Glucose 102, Calcium 8.9, Total Bilirubin 0.3, AST 20 D, ALT 16, Alkaline Phosphatase 94, Total Protein 5.3 L, Albumin 1.0 L, Globulin 4.3 H, Albumin/Globulin Ratio 0.2 L I & O for Last 24 hours: Intake & Output 03/01/18 03/02/18 03/03/18 03/04/18 11:59 11:59 11:59 11:59 Intake Total 1868 / 1868 5186 / 5186 3650 / 3650 6260 / 6260 Output Total 2550 / 2550 550 / 550 250 / 250 1350 / 1350 Balance -682 / -682 4636 / 4636 3400 / 3400 4910 / 4910 Weight 122 lb 1 oz 122 lb 1.013 oz 126 lb 8 oz 132 lb 2 oz - *Routine Abdominal Exam Present: soft Comments: Incision clean Progress Note: A&P (1) Gastric ulcer Status: Acute Current Visit: Yes (2) Seizures Problem details: will give loading dose of dilantin 750 mg- i discussed with rajat jacobsen Status: Acute Current Visit: Yes Assessment and Plan for All Diagnoses:: Discharge planning
[2018-03-04 09:45] LABS: Basophils % 0.1 % (0.1-2.0); Eosinophils # 0.3 K/mm3 (0.0-0.4); Eosinophils % 1.3 % (0.1-12.0); Hematocrit 44.8 % (42.0-52.0); Mean Platelet Volume 8.3 fl (7.4-10.4); Monocytes # 0.3 K/mm3 (0.1-1.0); Monocytes % 1.8 % (1.7-9.3); Neutrophils # 17.6 K/mm3 (1.8-7.8); Neutrophils % 91.9 % (37.0-80.0); Platelet Count 242 K/mm3 (142-424); Red Blood Count 5.21 M/mm3 (4.60-6.20); Red Cell Distribution Width 16.8 % (11.5-17.5); White Blood Count 19.2 K/mm3 (4.8-10.8)
[2018-03-04 09:59] LABS: Lymphocytes % 2 % (10-50); Monocytes % 2 % (2-9); Neutrophils % 92 % (42-76); RBC Morphology Normal; Total Cells Counted 100
[2018-03-04 14:49] LABS: ABG Base Excess -0.5 mmol/L (-2.4-2.3); ABG HCO3 24.4 mmhg (22.0-26.0); ABG Oxygen Saturation 96 % (90-100); ABG PCO2 41.1 mmhg (35.0-45.0); ABG PH 7.39 mmol/L (7.35-7.45); ABG TCO2 25.7 mmhg (23-27)
--- NOTE | 2018-03-05 09:17 | Progress Note ---
Internal Medicine - PN: Subj *Date: 03/05/18 *Time: 09:15 Interval history: Patient did fairly well over the weekend, is progressing nicely to a clear liquid diet. Exam Vital signs and Labs for Last 24 Hours: Temp Pulse Resp BP Pulse Ox 97.0 F L 92 H 16 140/85 92 L 03/05/18 07:51 03/05/18 07:51 03/05/18 07:51 03/05/18 07:51 03/05/18 07:51 Laboratory Results - last 24 hr 03/02/18 02:55: ABG pH 7.39, ABG pCO2 41.1, ABG pO2 96.0, ABG HCO3 24.4, ABG Total CO2 25.7, ABG O2 Saturation 96, ABG Base Excess -0.5 03/04/18 09:24: WBC 19.2 H, RBC 5.21, Hgb 13.0 L, Hct 44.8, MCV 86.0, MCH 25.0 L , MCHC 29.0 L, RDW 16.8, Plt Count 242, MPV 8.3, Neut % (Auto) 91.9 H, Lymph % ( Auto) 5.0 L, [place] % (Auto) 1.8, Eos % (Auto) 1.3, Baso % (Auto) 0.1, Neut # ( Auto) 17.6 H, Lymph # (Auto) 1.0, [place] # (Auto) 0.3, Eos # (Auto) 0.3, Baso # ( Auto) 0.0, Total Counted 100, Neutrophils % (Manual) 92 H, Band Neutrophils % 4.0, Lymphocytes % (Manual) 2 L, Monocytes % (Manual) 2, Platelet Estimate Normal, RBC Morphology Normal I & O for Last 24 hours: Intake & Output 03/02/18 03/03/18 03/04/18 03/05/18 11:59 11:59 11:59 11:59 Intake Total 5186 / 5186 3650 / 3650 6360 / 6360 480 / 480 Output Total 550 / 550 250 / 250 1350 / 1350 475 / 475 Balance 4636 / 4636 3400 / 3400 5010 / 5010 5 / 5 Weight 122 lb 1.013 oz 126 lb 8 oz 132 lb 2 oz 132 lb 5 oz Narrative: Alert, pleasant. Lungs clear. Abdomen soft, surgical site looks good. Heart rate regular. Is week and cachectic. Assessment and Plan (1) Gastric ulcer Current visit: Yes Status: Acute Category: Medical Code(s): K25.9 - Gastric ulcer, unspecified as acute or chronic, without hemorrhage or perforation (2) Seizures Problem details: will give loading dose of dilantin 750 mg- i discussed with rajat jacobsen Current visit: Yes Status: Acute Category: Medical Code(s): R56.9 - Unspecified convulsions - Assessment and plan all Dx Assessment and Plan for all problems:: Overall slight improvement. Patient's mother and sister are here, they wish to investigate transfer to rehabilitation bed. Think is reasonable. Oncology will see him tomorrow and give them some guidance about treatment for his cancer , if any are available.
--- NOTE | 2018-03-05 09:23 | Progress Note ---
Subjective Patient reports: feels better Exam Vital signs and Labs for Last 24 Hours: Temp Pulse Resp BP Pulse Ox 97.0 F L 92 H 16 140/85 92 L 03/05/18 07:51 03/05/18 07:51 03/05/18 07:51 03/05/18 07:51 03/05/18 07:51 Laboratory Results - last 24 hr 03/02/18 02:55: ABG pH 7.39, ABG pCO2 41.1, ABG pO2 96.0, ABG HCO3 24.4, ABG Total CO2 25.7, ABG O2 Saturation 96, ABG Base Excess -0.5 03/04/18 09:24: WBC 19.2 H, RBC 5.21, Hgb 13.0 L, Hct 44.8, MCV 86.0, MCH 25.0 L , MCHC 29.0 L, RDW 16.8, Plt Count 242, MPV 8.3, Neut % (Auto) 91.9 H, Lymph % ( Auto) 5.0 L, [place] % (Auto) 1.8, Eos % (Auto) 1.3, Baso % (Auto) 0.1, Neut # ( Auto) 17.6 H, Lymph # (Auto) 1.0, [place] # (Auto) 0.3, Eos # (Auto) 0.3, Baso # ( Auto) 0.0, Total Counted 100, Neutrophils % (Manual) 92 H, Band Neutrophils % 4.0, Lymphocytes % (Manual) 2 L, Monocytes % (Manual) 2, Platelet Estimate Normal, RBC Morphology Normal I & O for Last 24 hours: Intake & Output 03/02/18 03/03/18 03/04/18 03/05/18 11:59 11:59 11:59 11:59 Intake Total 5186 / 5186 3650 / 3650 6360 / 6360 480 / 480 Output Total 550 / 550 250 / 250 1350 / 1350 475 / 475 Balance 4636 / 4636 3400 / 3400 5010 / 5010 5 / 5 Weight 122 lb 1.013 oz 126 lb 8 oz 132 lb 2 oz 132 lb 5 oz - *Routine Abdominal Exam Present: soft Progress Note: A&P (1) Gastric ulcer Status: Acute Current Visit: Yes (2) Seizures Problem details: will give loading dose of dilantin 750 mg- i discussed with phar- ann-marie Status: Acute Current Visit: Yes Assessment and Plan for All Diagnoses:: Stop antibiotics (Diflucan, Invanz). Discharge planning. Advance diet.
--- NOTE | 2018-03-06 06:49 | Progress Note ---
Subjective Patient reports: no new complaints ([id number]) Exam Vital signs and Labs for Last 24 Hours: Temp Pulse Resp BP Pulse Ox 97.4 F L 100 H 14 143/91 94 L 03/06/18 04:00 03/06/18 04:00 03/06/18 04:00 03/06/18 04:00 03/06/18 04:00 I & O for Last 24 hours: Intake & Output 03/03/18 03/04/18 03/05/18 03/06/18 11:59 11:59 11:59 11:59 Intake Total 3650 / 3650 6360 / 6360 480 / 480 2552 / 2552 Output Total 250 / 250 1350 / 1350 475 / 475 650 / 650 Balance 3400 / 3400 5010 / 5010 5 / 5 1902 / 1902 Weight 126 lb 8 oz 132 lb 2 oz 132 lb 5 oz 119 lb 8 oz - Constitutional no acute distress - *Routine Respiratory Exam Absent: respiratory distress - *Routine Abdominal Exam Present: soft Comments: incision c/d/i and without erythema Progress Note: A&P (1) Gastric ulcer Status: Acute Assessment and plan: Overall, doing well s/p exploration with Keivn patch repair Continue soft diet Current Visit: Yes (2) Seizures Problem details: will give loading dose of dilantin 750 mg- i discussed with rajat jacobsen Status: Acute Current Visit: Yes Assessment and Plan for All Diagnoses:: Continue physical therapy while awaiting placement
--- NOTE | 2018-03-06 08:16 | Progress Note ---
Internal Medicine - PN: Subj *Date: 03/06/18 *Time: 08:13 Interval history: Patient is about the same, tolerated his soft diet fairly well. Denies pain. Exam Vital signs and Labs for Last 24 Hours: Temp Pulse Resp BP Pulse Ox 97.4 F L 100 H 14 143/91 94 L 03/06/18 04:00 03/06/18 04:00 03/06/18 04:00 03/06/18 04:00 03/06/18 04:00 I & O for Last 24 hours: Intake & Output 03/03/18 03/04/18 03/05/18 03/06/18 11:59 11:59 11:59 11:59 Intake Total 3650 / 3650 6360 / 6360 480 / 480 2552 / 2552 Output Total 250 / 250 1350 / 1350 475 / 475 650 / 650 Balance 3400 / 3400 5010 / 5010 5 / 5 1902 / 1902 Weight 126 lb 8 oz 132 lb 2 oz 132 lb 5 oz 119 lb 8 oz Narrative: Awake, somewhat sleepy. No change in his cardiac or lung exam. Abdomen soft. No pedal edema. Assessment and Plan (1) Gastric ulcer Current visit: Yes Status: Acute Category: Medical Code(s): K25.9 - Gastric ulcer, unspecified as acute or chronic, without hemorrhage or perforation Follow along with surgical office. Patient seems to be improving (2) Seizures Current visit: Yes Status: Acute Category: Medical Code(s): R56.9 - Unspecified convulsions Overall doing well. No further episodes of seizures. (3) Lung cancer Current visit: No Status: Acute Qualifiers: Laterality: left Lung location: hilum of lung Qualified Code(s): C34.02 - Malignant neoplasm of left main bronchus Category: Medical Code(s): C34.90 - Malignant neoplasm of unspecified part of unspecified bronchus or lung Oncology evaluation today. Son is going to talk with oncology about further options. Family is leaning towards no treatment given his poor prognosis. They wish to be evaluated for long-term care
--- NOTE | 2018-03-07 06:43 | Progress Note ---
Subjective Patient reports: no new complaints Exam Vital signs and Labs for Last 24 Hours: Temp Pulse Resp BP Pulse Ox 97.9 F 117 H 14 116/72 95 03/07/18 04:00 03/07/18 04:00 03/07/18 04:00 03/07/18 04:00 03/07/18 04:00 I & O for Last 24 hours: Intake & Output 03/04/18 03/05/18 03/06/18 03/07/18 11:59 11:59 11:59 11:59 Intake Total 6360 / 6360 480 / 480 2552 / 2552 120 / 120 Output Total 1350 / 1350 475 / 475 650 / 650 1000 / 1000 Balance 5010 / 5010 5 / 5 1902 / 1902 -880 / -880 Weight 132 lb 2 oz 132 lb 5 oz 119 lb 8 oz - Constitutional no acute distress - *Routine Respiratory Exam Absent: respiratory distress - *Routine Abdominal Exam Present: soft Comments: incision c/d/i Progress Note: A&P (1) Gastric ulcer Status: Acute Assessment and plan: stable s/p exploration with Kevin patch... tolerating a soft diet d/c to [facility] Current Visit: Yes (2) Seizures Status: Acute Current Visit: Yes (3) Lung cancer Status: Acute Current Visit: No
--- NOTE | 2018-03-07 06:46 | Discharge Summary ---
General - General Admission date:: 02/27/18 Discharge date: 03/07/18 HPI HPI: Patient is a 72-year-old -Citizen Of [place] male with metastatic lung cancer to the brain. He recently has been on steroids for brain metastases and has been on indomethacin for pericarditis. He has history of right inguinal hernia and presented 16 days ago with incarcerated possibly strangulated right inguinal hernia. He was taken emergently to the operating room at that time and underwent open repair with completion diagnostic laparoscopy to assess the bowel viability. Bowel was erythematous but appeared viable and nonnecrotic. Patient had been seen in postoperative follow-up on 02/25/18 and was doing relatively well. He had seen oncology today as an outpatient and then this afternoon while he was shopping he had sudden onset of pain mostly localized in the right lower quadrant. It was quite severe. Became somewhat more diffuse and he ended to the emergency department. He was seen and evaluated and had non -contrast CT scan which revealed scattered free air. Surgical consultation was obtained. Per surgical consultation/H&P. Patient last night was taken to operating room where pneumoperitoneum was investigated with laparotomy. Found to have a large perforated anterior ulcer. Of note, patient has been treated for pericarditis with steroids-which she had been on before for his brain metastases, as well as the addition of indomethacin which resolved peritonitis symptoms but obviously risk factors for ulcer with perforation. He was transferred to the stepdown unit and I examined him this morning. Has some expected surgical incision pain but overall notes that his abdominal pain and swelling is much improved. He has no complaints of chest pain or shortness of air and is alert and pleasant. Hospital Course Hospital Course: The patient underwent exploration with washout and Kevin patch placement over anterior perforated duodenal ulcer. Please see operative report for detail. Postoperatively, he remained afebrile stable normal vital signs. His nasogastric tube was removed after contrast study revealed no sign of leak and his diet was slowly advanced. Physical therapy was consulted secondary to deconditioning. He was able ambulate with assistance. Due to his multiple comorbid conditions including metastatic lung cancer he was deemed to be appropriate for placement. Objective Vital signs: Temp Pulse Resp BP Pulse Ox 97.9 F 117 H 14 116/72 95 03/07/18 04:00 03/07/18 04:00 03/07/18 04:00 03/07/18 04:00 03/07/18 04:00 no acute distress - *Routine Respiratory Exam Absent: respiratory distress - *Routine Cardiovascular Exam Present: RRR - *Routine Abdominal Exam Present: tenderness - *Routine Neurological Exam Present: alert. Absent: oriented X3 - Routine Psychiatric Exam Absent: normal thought process DS: Diagnosis - Discharge Diagnosis (1) Seizures Status: Acute (2) Lung cancer Status: Acute (3) Duodenal ulcer Status: Acute Discharge Plan - Patient Discharge Instructions Patient Instructions: Seizure Disorder -- Adult, Acute Abdominal Pain, Gastric Ulcer, High-Calorie, High-Protein Diet, Surgical Site Infection - Follow up Plan Follow up with: Yuan Gan [Primary Care Provider] - Cruz Jacobson MD [Staff Physician] - 1 week Disposition: [facility] Home Medications: Home Medications Medication Instructions Recorded Confirmed Type alprazolam 2 mg tablet 2 mg PO QIDP PRN 12/03/17 02/27/18 History aspirin 81 mg tablet,delayed 81 mg PO DAILY 12/03/17 02/27/18 History release rosuvastatin 5 mg tablet 5 mg PO DAILY 12/03/17 02/27/18 History Dexamethasone [Decadron 4mg tablet] 8 mg PO Q6H 02/12/18 02/27/18 History Oxycodone HCl [Oxycodone (IR) 15mg 15 mg PO Q6H 02/12/18 02/27/18 History Tab] Indomethacin [Indocin 25mg capsule] 25 mg OP TID 02/27/18 02/27/18 History Metoprolol Tartrate [Lopressor 12.5 mg PO BID 02/27/18 02/27/18 History 25mg tablet] Umeclidinium Brm/Vilanterol Tr 1 each IH DAILY 02/28/18 02/28/18 History [Anoro Ellipta 62.5-25 Mcg INH] Prescriptions/Medication Reconciliation: New Pantoprazole Sodium [Protonix 40mg (granule) packet] 40 mg PO DAILY 30 Days #30 packet Continue alprazolam 2 mg tablet 2 mg PO QIDP PRN PRN Reason: Anxiety aspirin 81 mg tablet,delayed release 81 mg PO DAILY rosuvastatin 5 mg tablet 5 mg PO DAILY Oxycodone HCl [Oxycodone (IR) 15mg Tab] 15 mg PO Q6H Dexamethasone [Decadron 4mg tablet] 8 mg PO Q6H Metoprolol Tartrate [Lopressor 25mg tablet] 12.5 mg PO BID Indomethacin [Indocin 25mg capsule] 25 mg OP TID Umeclidinium Brm/Vilanterol Tr [Anoro Ellipta 62.5-25 Mcg INH] 1 each IH DAILY
[2018-03-07 08:07] VITALS: BP 114/74
== END 2018-03-07 12:30 ==
LOC: ER 17:05 → SDC 20:26 → ICU 20:29 → SDC 20:29 → OBSVTOIN 22:42 → 2ND 03-01 13:16
PROVIDERS: ADMIT Surgery; ATTEND Surgery